=== PATIENT | female | born 1960 | race Caucasian/White ===

== ENCOUNTER 2022-02-28 08:33 | Outpatient (CLI) | payer BC, SELFPAY ==
--- NOTE | 2022-02-28 08:45 | CRLHL7_ITS ---
For Patients: As a result of the Cures Act, medical imaging exams and procedure reports are released immediately into your electronic medical record. You may view this report before your referring provider. If you have questions, please contact your health care provider. DIGITAL DIAGNOSTIC BILATERAL MAMMOGRAM USING TOMOSYNTHESIS AND COMPUTER-AIDED DETECTION BILATERAL BREAST ULTRASOUND CLINICAL HISTORY: BILATERAL breast lumps. COMPARISON: 06/15/2021, 06/07/2021, 03/27/2020, 08/11/2018, 05/20/2017 TECHNIQUE: Digital BILATERAL mammogram in four projections. Tomosynthesis and CAD utilized. Real-time ultrasound imaging of BILATERAL breast with imaging documentation. Scanning was performed by both the technologist and the radiologist. BREAST COMPOSITION: There are areas of scattered fibroglandular density. FINDINGS: CC/MLO 3D mammograms submitted bilaterally. No suspicious masses or architectural distortion bilaterally. No suspicious calcifications or adenopathy. Targeted sonogram to the RIGHT breast in the area of palpable concern performed at 9 o`clock 7 cm from the nipple. In this location there is a simple anechoic cyst measuring 8 x 2 x 6 millimeters. Normal fibroglandular tissue noted also at 10 o`clock 7 cm from the nipple. Targeted sonogram to the LEFT breast in the area of concern performed 6 o`clock 5 cm from the nipple. In this location there is a circumscribed nodule with hypoechoic internal echotexture measuring 4 x 4 x 4 millimeters. IMPRESSION: 1. Simple cyst and normal fibroglandular tissue RIGHT breast. 2. Indeterminate hypoechoic nodule LEFT breast 6 o`clock 5 cm from the nipple mid depth measuring 4 millimeters. RECOMMENDATIONS: Ultrasound-guided core needle biopsy of the LEFT breast nodule. Results and recommendations discussed with the patient. BI-RADS Category 4: Suspicious A lay language report of this examination will be provided to the patient. Dictated by Omid Kaplan MD @ 02/28/2022 10:17:50 AM jj/Dictated by: Omid Kaplan MD @ 02/28/2022 10:17:00 AM (Electronically Signed)
--- NOTE | 2022-02-28 09:15 | CRLHL7_ITS ---
For Patients: As a result of the Cures Act, medical imaging exams and procedure reports are released immediately into your electronic medical record. You may view this report before your referring provider. If you have questions, please contact your health care provider. PLEASE SEE DIGITAL DIAGNOSTIC BILATERAL MAMMOGRAM PERFORMED SAME DAY CRL:kostas kenyon/Dictated by: Omid Kaplan MD @ 02/28/2022 10:24:00 AM (Electronically Signed)
== END 2022-02-28 08:34 | disposition home or self-care (01) ==
LOC: MAMMO 08:34
PROVIDERS: PCP Family Medicine; Visit Provider Nurse Practitioner Family
DX: N63.10 Unspecified lump in the right breast, unspecified quadrant (principal); N63.20 Unspecified lump in the left breast, unspecified quadrant; N60.01 Solitary cyst of right breast
CPT/HCPCS: 76642; 77066; G0279

== ENCOUNTER 2022-03-05 09:04 | Outpatient (CLI) | payer BC, SELFPAY ==
--- NOTE | 2022-03-05 09:15 | CRLHL7_ITS ---
For Patients: As a result of the Century Cures Act, medical imaging exams and procedure reports are released immediately into your electronic medical record. You may view this report before your referring provider. If you have questions, please contact your health care provider. Examination / Procedure: Ultrasound guided biopsy of left breast mass. Indication: Hypoechoic 4 mm mass in the left breast at the 6 o`clock position 5 cm from the nipple. Comparison: : Ultrasound 02/28/2022 and mammograms 02/28/2022. Technique: The procedure and risks were discussed in detail, and written informed consent was obtained. A time out was performed to verify correct patient and procedure. The patient was placed supine on the table. Initial ultrasound of the left breast was performed. The small 4 mm mass in the posterior left breast at the 6 o`clock position 5 cm from the nipple was identified with ultrasound. A january was made on the patient`s skin. The site was prepped and draped in the usual sterile fashion. All elements of maximum sterile barrier technique were used. Soft tissues were anesthetized with 1% lidocaine. Under real time sonographic guidance a 14 gauge biopsy needle was used to perform 3 core biopsies. After each subsequent biopsy the small 4 mm mass was more and more difficult to visualize. To ensure accurate clip placement only 3 biopsies were performed. Biopsy clip was placed under ultrasound guidance. Please see post clip mammograms for details. Needle was removed. Bandage placed. Patient tolerated the procedure well. No immediate complications. Impression: Successful ultrasound guided biopsy of the left breast mass at the 6 o`clock position. Dictated by Greyson Bueno MD @ 03/05/2022 10:31:17 AM ----- ADDENDUM ----- Final pathology benign fibroadipose tissue is concordant with imaging findings. Recommend follow-up three-month ultrasound. Dictated by Greyson Bueno MD @ Mar 07 2022 10:19AM Signed by:?Greyson Bueno MD @03/05/2022 10:31:17 AM (Electronically Signed)
--- NOTE | 2022-03-05 09:45 | CRLHL7_ITS ---
For Patients: As a result of the Century Cures Act, medical imaging exams and procedure reports are released immediately into your electronic medical record. You may view this report before your referring provider. If you have questions, please contact your health care provider. Indication: Post clip mammogram. Technique: Left CC and mL mammograms. Comparison: Diagnostic mammogram 02/28/2022. Findings/impression : Biopsy clip is in expected position in left breast at approximately 6:00 position 5-6 cm from the nipple. Dictated by Greyson Bueno MD @ 03/05/2022 10:32:56 AM (Electronically Signed)
== END 2022-03-05 09:05 | disposition home or self-care (01) ==
LOC: US 09:05
PROVIDERS: PCP Family Medicine; Visit Provider Family Medicine
DX: N63.20 Unspecified lump in the left breast, unspecified quadrant (principal); R92.8 Other abnormal and inconclusive findings on diagnostic imaging of breast
CPT/HCPCS: 19083; 77065; 88305; A4648; A4649

== ENCOUNTER 2022-03-24 04:06 | Emergency (ER) | payer BC, SELFPAY ==
[2022-03-24] VITALS (18 sets, daily range): BP systolic 147–180; BP diastolic 69–118; PULSE 54–79; RESP 20; TEMP 36.8; O2SAT 94–99; BMI 27.3
--- NOTE | 2022-03-24 04:12 | ED_ITS ---
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 Carin went to bed normal at approximately 2300 hours. She awoke at 0215 with tingling of the hands and feet but more prominent in the ulnar distribution of the hands and the lateral aspects of the feet since she arrived. She denies difficulty with speaking swallowing or mentating. She has not had any recent trauma and denies headache neck pain or back pain. Patient notes no recent fever chills cough cold congestion. She denies any pain at this time. No loss of bowel or bladder control. She arrives at approximately 0415, 2 hours after noticing symptoms and 5 hours since last known well time. Patient notes that in 2010 she was hospitalized at [facility] in [place] with what they thought were stroke-like symptoms. However, the diagnosis ended up being migraine induced symptoms. Patient did not have headache at that time. Patient denies recent chest pain, rapid heart rate. She does note past history of occasional ?feeling funny? but no diagnosis of atrial fibrillation or atrial flutter. Related Data Home Medications Medication Instructions Recorded Confirmed aspirin 81 mg tablet,delayed 81 mg PO DAILY 02/20/22 03/24/22 release cetirizine 10 mg tablet 10 mg PO BID 02/20/22 03/24/22 cholecalciferol (vitamin D3) 25 2,000 unit PO DAILY 02/20/22 03/24/22 mcg (1,000 unit) tablet epinephrine 0.3 mg/0.3 mL 0.3 ml IM ONCE PRN 02/20/22 03/24/22 injection, auto-injector fluticasone propionate 50 1 spray intranasal DAILY 02/20/22 03/24/22 mcg/actuation nasal spray,suspension glipizide 10 mg tablet, extended 10 mg PO DAILY 02/20/22 03/24/22 release 24 hr multivitamin (Multiple Vitamins 1 tab PO QDAY 02/20/22 03/24/22 tablet) propranolol 80 mg capsule,24 80 mg PO DAILY 02/20/22 03/24/22 hr,extended release simvastatin 20 mg tablet 20 mg PO QPM 02/20/22 03/24/22 sitagliptin 100 mg tablet 100 mg PO DAILY 02/20/22 03/24/22 Allergies Allergy/AdvReac Type Severity Reaction Status Date / Time cephalexin Allergy Unknown Verified 02/20/22 13:00 dulaglutide Allergy Unknown Verified 02/20/22 13:00 exenatide Allergy Unknown Verified 02/20/22 13:00 metformin Allergy Unknown Verified 02/20/22 13:00 penicillin G Allergy Unknown Verified 02/20/22 13:00 phenol Allergy Unknown Verified 02/20/22 13:00 Erythromycin Allergy Unknown Uncoded 02/20/22 13:00 Sulfa Antibiotics Allergy Unknown Uncoded 02/20/22 13:00 Review of Systems Status of ROS: Reports: 10 or more systems reviewed and unremarkable except as noted in History and below Const: Denies: fever or chills Eyes: Denies: change in vision, blurry vision or blind spots ENMT: Denies: throat pain, neck pain or difficulty swallowing Cardio: Reports: palpitations (Occasional but no history of arrhythmia); Denies: chest pain or shortness of breath with exertion Resp: Denies: shortness of breath, cough or wheezing GI: Denies: abdominal pain, nausea, vomiting, diarrhea or difficulty swallowing : Denies: painful urination Musculo: Denies: back pain, neck pain or extremity pain Neuro: Reports: numbness in extremities; Denies: headache Allergy/Immuno: Denies: wheezing PFSH PFS Surgical History History of surgery on upper extremity Status post breast biopsy Status post carpal tunnel release Status post delivery Status post cholecystectomy Status post hysterectomy Social History Smoking Status: Never smoker Do you use any of these nicotine containing products: None Second hand tobacco smoke exposure: No How often do you have a drink containing alcohol: never How often do you have six or more drinks on one occasion: Never AUDIT-C Alcohol total score: 0 Non-prescribed substance use: denies use Exam Const: Vital Signs, click to edit/add: Vital Signs - 24 hr 03/24/22 04:23 03/24/22 05:53 03/24/22 04:54 Temperature 98.2 F 98.2 F Pulse Rate 66 Pulse Rate [Right Pulse Oximeter] 74 74 Respiratory Rate 20 20 Blood Pressure Blood Pressure [Ri ght Upper Arm] 180/118 H 180/118 H Pulse Oximetry 99 94 98 Oxygen Delivery Me thod Room Air Room Air 03/24/22 04:55 03/24/22 05:00 03/24/22 05:01 Temperature Pulse Rate 65 62 62 Pulse Rate [Right Pulse Oximeter] Respiratory Rate Blood Pressure 179/84 H 153/85 H Blood Pressure [Ri ght Upper Arm] Pulse Oximetry 97 97 96 Oxygen Delivery Me thod 03/24/22 05:15 03/24/22 05:17 03/24/22 05:30 Temperature Pulse Rate 58 L 64 64 Pulse Rate [Right Pulse Oximeter] Respiratory Rate Blood Pressure 153/82 H Blood Pressure [Ri ght Upper Arm] Pulse Oximetry 96 96 96 Oxygen Delivery Me thod 03/24/22 05:31 03/24/22 05:46 03/24/22 05:47 Temperature Pulse Rate 58 L 59 L 54 L Pulse Rate [Right Pulse Oximeter] Respiratory Rate Blood Pressure 158/86 H 157/71 H Blood Pressure [Ri ght Upper Arm] Pulse Oximetry 96 97 94 Oxygen Delivery Me thod 03/24/22 05:00 03/24/22 05:48 03/24/22 06:00 Temperature Pulse Rate 61 57 L Pulse Rate [Right Pulse Oximeter] Respiratory Rate Blood Pressure Blood Pressure [Ri ght Upper Arm] Pulse Oximetry 98 95 95 Oxygen Delivery Me thod 03/24/22 06:02 03/24/22 06:15 03/24/22 06:16 Temperature Pulse Rate 57 L 56 L 61 Pulse Rate [Right Pulse Oximeter] Respiratory Rate Blood Pressure 147/69 H 157/71 H Blood Pressure [Ri ght Upper Arm] Pulse Oximetry 95 96 94 Oxygen Delivery Me thod Documenting provider has reviewed patient's vital signs: yes Common normals: no apparent distress, average body habitus, oriented x3, no limitations, healthy appearing, alert and well nourished General appearance: cooperative, comfortable and well kempt HENMT: Common normals: normocephalic, head/scalp atraumatic, external ears normal and external nose normal Head and scalp: normocephalic and atraumatic Face and sinus: normal facial exam and face symmetric Nose: external nose normal External ear: external ears normal Mouth: oral and palatal mucosa normal Throat: posterior oropharynx normal Eye: Common normals: PERRL, EOMs intact bilaterally and conjunctivae normal General eye: normal appearance of both eyes Visual meneses: no peripheral vision loss and no visual field cut by quadrant Alignment: alignment normal Periorbital: periorbital findings normal Eyelid: eyelids normal Conjunctiva: conjunctiva(e) normal Sclera: sclerae normal Pupil: PERRL Neck & C-Spine: Common normals: full ROM, supple and no meningeal signs Resp: Common normals: normal respiratory effort and clear to auscultation bilaterally Effort & inspection: able to speak in complete sentences Auscultation: clear to auscultation bilaterally Cardio: Common normals: regular rate and regular rhythm Rate: regular rate Rhythm: regular rhythm GI: Common normals: soft to palpation and non-tender Palpation: soft : Common normals: CVA tenderness Bladder/kidney exam: CVA tenderness Back & Pelvis: Common normals: CVA tenderness Extremity: Common normals: normal to inspection, no clubbing, cyanosis or edema and no calf tenderness Neuro: Common normals: oriented x3, CN's II-XII intact bilaterally, moves all extremities, no focal motor deficits and no sensory deficits noted (Subjective decreased sensation in hands and feet.) Sensorium/orientation: alert Meningeal signs: no meningeal signs Coordination/balance: [id number] test normal (Of left hand. Right arm with IV in antecubital fossa) and Romberg test negative Speech: speech normal Motor exam: strength 5/5 throughout, no pronator drift, no tremor noted, no fasciculations and no movement abnormalities noted Coordination: [id number] test normal (Of left hand. Right arm with IV in antecubital fossa) Psych: Common normals: mental status grossly normal, thought process normal and speech normal Appearance: well kempt Activity/motor behavior: appropriate eye contact Speech: normal speech Thought process: normal thought process Thought content: normal thought content Attention/concentration: attention grossly intact Memory/cognition: memory grossly intact Insight: insight good Judgement: judgment good Course Course Hospital Course: At this time we immediately proceed to CT/CTA although bilateral symptoms would be unusual for an acute CVA. Other possibilities include intracranial bleed, mass, vitamin deficiency, neuritis. Reevaluation(s) Reevaluation #1: Patient continues to mentate normally. Moving all extremities. Consultations Consultation #1: [facility] Dr. Burrell consulted. At this time he does not feel that this event represents an acute stroke. Further CT CTA are negative at this time. He suggests further at home monitoring and follow-up with neurology for continuing symptoms. Vital Signs Vital signs: Initial Vital Signs Temperature 98.2 F 03/24/22 04:23 Temperature Source Temporal Artery Scan 03/24/22 04:23 Pulse Rate 74 03/24/22 04:23 Respiratory Rate 20 03/24/22 04:23 Blood Pressure 180/118 H 03/24/22 04:23 Blood Pressure Mean 138 03/24/22 04:23 Blood Pressure Position Sitting 03/24/22 04:23 Pulse Oximetry 99 03/24/22 04:23 Oxygen Delivery Method 03/24/22 04:23 Vital Signs Temperature 98.2 F 03/24/22 04:23 Pulse Rate 74 03/24/22 04:23 Respiratory Rate 20 03/24/22 04:23 Blood Pressure 180/118 H 03/24/22 04:23 Pulse Oximetry 99 03/24/22 04:23 Oxygen Delivery Method 03/24/22 04:23 Temperature 98.2 F 03/24/22 05:53 Pulse Rate 61 03/24/22 06:16 Respiratory Rate 20 03/24/22 05:53 Blood Pressure 157/71 H 03/24/22 06:16 Pulse Oximetry 94 03/24/22 06:16 Oxygen Delivery Method 03/24/22 05:53 MDM - Altered Mental Status MDM Narrative Medical decision making narrative: 1. Numbness or tingling of the hands and feet-patient noted to remain stable in the emergency room with no worsening of symptoms. She continued to mentate normally. CT of head and CTA of head and neck are all reassuring with no ev idence of masses, intracranial bleed, blockages. I had the pleasure of speaking with [facility]. They do suggest follow-up with primary MD. given patient's history of gluten sensitive enteropathy she will follow-up with her primary MD for recheck of vitamin-D, B vitamins and magnesium. We talked briefly about dosage amounts for magnesium and the B vitamins. Patient has a reassuring white count and CRP. Creatinine potassium within normal limits. Troponin is negative. Urinalysis without evidence of UTI. Patient will return to the emergency room for worsening symptoms. 2. Disposition-patient is discharged home. Patient does agree she feels safe going home as does her taking her home. However, if she notices onset of new symptoms or worsening symptoms I would like him to return to the emergency room for further evaluation. Medical Records Attestation: I reviewed the patient's medical records. Lab Data Attestation: I reviewed the patient's lab results. Labs: Lab Results 03/24/22 03/24/22 03/24/22 Range/Units 04:40 04:40 04:40 WBC 8.10 (4.50-11.00) K/uL RBC 4.66 (4.00-5.20) m/uL Hgb 13.2 (12.0-16.0) gm/dL Hct 41.2 (33.0-51.0) % MCV 88 (80-100) fL MCH 28 (26-34) pg MCHC 32 (32-36) gm/dL RDW Coeff of Doming[place] 13.7 (11.5-15.5) % Plt Count 261 (140-440) K/uL Neut % (Auto) 57.6 (42.0-72.0) % Lymph % (Auto) 31.6 (20-44) % [place] % (Auto) 7.5 (0.0-11.0) % Eos % (Auto) 2.6 (0.0-7.0) % Baso % (Auto) 0.2 (0.0-3.0) % Neut # (Auto) 4.66 (1.7-7.0) K/uL Lymph # (Auto) 2.56 (0.90-2.90) K/uL [place] # (Auto) 0.60 (0.00-0.90) K/UL Eos # (Auto) 0.21 (0.00-0.50) K/uL Baso # (Auto) 0.02 (0.00-0.30) K/uL Abs Immat Gran (auto) 0.04 (0.00-0.30) K/uL ESR 6 (2-20) mm/hr Sodium (135-149) mmol/L Potassium (3.6-5.1) mmol/L Chloride (96-114) mmol/L Carbon Dioxide (20-32) mmol/L BUN (7-30) mg/dL Creatinine (0.5-1.5) mg/dL Estimated Creat Clear Estimated GFR ml/min Glucose (60-115) mg/dL Calcium (8.4-10.6) mg/dL Total Bilirubin (0.1-1.5) mg/dL AST (12-35) U/L ALT (4-35) U/L Alkaline Phosphatase (40-150) U/L Total Creatine Kinase (41-117) U/L Troponin I (0.01-0.04) ng/mL C-Reactive Protein (0.5-1.0) mg/dL Total Protein (6.0-8.3) g/dL Albumin (3.3-5.0) g/dL Urine Color Yellow (Yellow) Urine Appearance Clear (Clear) Urine pH 7.0 (5.0-8.5) Ur Specific [place] 1.020 (1.000-1.030) Urine Protein Negative (Negative) Urine Glucose (UA) Negative (Negative) Urine Ketones Negative (Negative) Urine Blood Negative (Negative) Urine Nitrite Negative (Negative) Urine Bilirubin Negative (Negative) Urine Urobilinogen 0.2 (0.2-1.0) Ur Leukocyte Esterase Negative (Negative) Urine RBC 0-2 (0-2) Urine WBC 0-2 (0-5) Ur Squamous Epith Cells Few (None-Few) Urine Bacteria None (None) 03/24/22 Range/Units 04:40 WBC (4.50-11.00) K/uL RBC (4.00-5.20) m/uL Hgb (12.0-16.0) gm/dL Hct (33.0-51.0) % MCV (80-100) fL MCH (26-34) pg MCHC (32-36) gm/dL RDW Coeff of Dominga (11.5-15.5) % Plt Count (140-440) K/uL Neut % (Auto) (42.0-72.0) % Lymph % (Auto) (20-44) % [place] % (Auto) (0.0-11.0) % Eos % (Auto) (0.0-7.0) % Baso % (Auto) (0.0-3.0) % Neut # (Auto) (1.7-7.0) K/uL Lymph # (Auto) (0.90-2.90) K/uL [place] # (Auto) (0.00-0.90) K/UL Eos # (Auto) (0.00-0.50) K/uL Baso # (Auto) (0.00-0.30) K/uL Abs Immat Gran (auto) (0.00-0.30) K/uL ESR (2-20) mm/hr Sodium 139 (135-149) mmol/L Potassium 3.8 (3.6-5.1) mmol/L Chloride 104 (96-114) mmol/L Carbon Dioxide 27 (20-32) mmol/L BUN 16 (7-30) mg/dL Creatinine 0.8 (0.5-1.5) mg/dL Estimated Creat Clear 56.00 Estimated GFR 83 ml/min Glucose 174 H (60-115) mg/dL Calcium 8.6 (8.4-10.6) mg/dL Total Bilirubin 0.3 (0.1-1.5) mg/dL AST 22 (12-35) U/L ALT 23 (4-35) U/L Alkaline Phosphatase 92 (40-150) U/L Total Creatine Kinase 56 (41-117) U/L Troponin I < 0.01 L (0.01-0.04) ng/mL C-Reactive Protein < 0.5 L (0.5-1.0) mg/dL Total Protein 7.3 (6.0-8.3) g/dL Albumin 4.3 (3.3-5.0) g/dL Urine Color (Yellow) Urine Appearance (Clear) Urine pH (5.0-8.5) Ur Specific [place] (1.000-1.030) Urine Protein (Negative) Urine Glucose (UA) (Negative) Urine Ketones (Negative) Urine Blood (Negative) Urine Nitrite (Negative) Urine Bilirubin (Negative) Urine Urobilinogen (0.2-1.0) Ur Leukocyte Esterase (Negative) Urine RBC (0-2) Urine WBC (0-5) Ur Squamous Epith Cells (None-Few) Urine Bacteria (None) Imaging Data CT scan - head: Attestation: I have reviewed the pertinent imaging results. My impression: No acute findings Radiologist's impression: No acute findings CTA head and neck: Attestation: I have reviewed the pertinent imaging results. My impression: No acute findings Radiologist's impression: No acute findings ECG Data Attestation: I personally reviewed and interpreted this ECG as follows: ECG interpretation date: 03/24/22 Interpretation: EKG by my read shows sinus bradycardia at a rate of 55. There do not appear to be any acute ST or T-wave changes. First degree block noted with a [place] interval of 22.2. QT interval corrected is 384 Discharge Plan Discharge Clinical Impression: Numbness and tingling in both hands, Numbness and tingling of both feet Patient Disposition: Home, Self-Care Condition: Unchanged Additional Instructions: Recommend follow-up with Dr. Boyce. He may wish to check your vitamin-D, vitamin B levels, magnesium. Return to the emergency room for worsening symptoms. Prescriptions: No Action simvastatin 20 mg tablet 20 mg PO QPM aspirin 81 mg tablet,delayed release (DR/EC) 81 mg PO DAILY epinephrine 0.3 mg/0.3 mL auto-injector 0.3 ml IM ONCE PRN cetirizine 10 mg tablet 10 mg PO BID cholecalciferol (vitamin D3) 25 mcg (1,000 unit) tablet 2,000 unit PO DAILY propranolol 80 mg capsule,extended release 24 hr 80 mg PO DAILY glipizide 10 mg tablet extended release 24hr 10 mg PO DAILY sitagliptin 100 mg tablet 100 mg PO DAILY multivitamin [Multiple Vitamins] Tablet 1 tab PO QDAY fluticasone propionate 50 mcg/actuation spray,suspension 1 spray intranasal DAILY Follow Up/Referrals: Drake Boyce MD [Primary Care Provider] - Stand Alone Forms: [facility], [place] Info Instructions
--- NOTE | 2022-03-24 04:40 | CRLHL7_ITS ---
For Patients: As a result of the Century Cures Act, medical imaging exams and procedure reports are released immediately into your electronic medical record. You may view this report before your referring provider. If you have questions, please contact your health care provider. INDICATION: Altered sensation in the extremities. COMPARISON: None available. TECHNIQUE: CT examination of the head was performed with 3 mm thick axial and 2 mm thick coronal and sagittal sections without intravenous contrast. Images were obtained from the vertex of the skull through the skull base, and I examined the images with the brain and bone windows. Please note that all CT scans at this facility use dose modulation, iterative reconstruction, and/or weight-based dosing when appropriate to reduce radiation dose to as low as reasonably achievable. FINDINGS: : The brain is normal in appearance for the patient`s age on today`s study, with no sign of mass lesion, mass effect, hemorrhage, or edema. The ventricles and sulci are normal in appearance for the patient`s age. The visualized portions of the orbits are normal in appearance. The visualized portions of the paranasal sinuses and mastoids are clear. The osseous structures are normal in their appearance with no sign of abnormality in the skull base or calvarium. IMPRESSION: Normal noncontrast CT of the head for the patient`s age. Please note that all CT scans at this facility use dose modulation, iterative reconstruction, and/or weight-based dosing when appropriate to reduce radiation dose to as low as reasonably achievable. Dictated by Shamar Urias MD @ 03/24/2022 5:01:01 AM (Electronically Signed)
--- NOTE | 2022-03-24 04:40 | CT_ITS ---
Patient: BARBARA SMITH Facility:?[facility] Patient ID:?[id number] Site Patient ID:?[id number]. Site :?[id number] Study:?CT-Neck Angio Angio -03/24/2022 4:56:56 AM Ordering Physician:Rush Vincent Final Report: DATE: 03/24/2022 CLINICAL HISTORY: Patient with sensory changes. TECHNIQUE: Standard helical CT image acquisition of the neck up to the skull base after bolus intravenous contrast enhancement. Multiplanar reconstructed images performed on a separate workstation. COMPARISON: CT same day. FINDINGS: The origins of the great vessels from the aortic arch are patent. The origin of the right vertebral artery is patent. The origin of the left vertebral artery is patent. The common carotid arteries are patent. There is no stenosis at the origin of the right internal carotid artery. There is no stenosis at the origin of the left internal carotid artery. There is mild fibromuscular dysplasia in the mid and distal cervical segments of the internal carotid arteries bilaterally. The left vertebral artery is dominant. The cervical segments of the vertebral arteries are patent up to the skull base. The visualized lung apices are unremarkable. The thyroid gland is unremarkable. The soft tissues of the neck are unremarkable. There are degenerative changes in the cervical spine. IMPRESSION: 1. Patent cervical vasculature. 2. Mild fibromuscular dysplasia in the mid and distal cervical segments of the internal carotid arteries bilaterally. Please note that all CT scans at this facility use dose modulation, iterative reconstruction, and/or weight-based dosing when appropriate to reduce radiation dose to as low as reasonably achievable. Dictated by Jolie Smith MD @ 03/24/2022 7:08:11 AM Signed by:?Jolei Smith MD @03/24/2022 7:08:11 AM (Electronic Signature)
--- NOTE | 2022-03-24 04:40 | CT_ITS ---
Patient: BARBARA SMITH Facility:?[facility] Patient ID:?[id number] Site Patient ID:?[id number]. Site :?[id number] Study:?CT-Head Angio -03/24/2022 4:57:05 AM Ordering Physician:Rush Vincent Final Report: DATE: 03/24/2022 CLINICAL HISTORY: Patient with sensory changes. TECHNIQUE: Standard helical CT image acquisition through the intracranial circulation following intravenous administration of contrast material with bolus tracking. Multiplanar reconstructed images were performed and interpreted. COMPARISON: CT same day. FINDINGS: There is no cerebral aneurysm or large vessel occlusion. The right internal carotid artery is normal. The right middle cerebral artery and its branches are normal. The right anterior cerebral artery and its branches are normal. The left internal carotid artery is normal. The left middle cerebral artery and its branches are normal. The left anterior cerebral artery and its branches are normal. The anterior communicating artery is well visualized and appears normal. The right vertebral artery and PICA are normal. The left vertebral artery and PICA are normal. The left vertebral artery is dominant. The basilar artery is patent and appears normal. The right posterior cerebral artery is normal. The left posterior cerebral artery is normal. The visualized venous structures are patent. IMPRESSION: Normal CT angiogram of the head. Please note that all CT scans at this facility use dose modulation, iterative reconstruction, and/or weight-based dosing when appropriate to reduce radiation dose to as low as reasonably achievable. Dictated by Jolie Smith MD @ 03/24/2022 7:10:00 AM Signed by:?Jolie Smith MD @03/24/2022 7:10:00 AM (Electronic Signature)
[2022-03-24 05:00] LABS: Basophils Absolute Auto 0.02 K/uL (0.00-0.30); Basophils Percent Auto 0.2 % (0.0-3.0); Eosinophils Absolute Auto 0.21 K/uL (0.00-0.50); Eosinophils Percent Auto 2.6 % (0.0-7.0); Hematocrit 41.2 % (33.0-51.0); Hemoglobin* 13.2 gm/dL (12.0-16.0); Immature Granulocytes Abs Auto 0.04 K/uL (0.00-0.30); Lymphocytes Absolute Auto 2.56 K/uL (0.90-2.90); Lymphocytes Percent Auto 31.6 % (20-44); Mean Corpuscular HGB Conc 32 gm/dL (32-36); Mean Corpuscular Hemoglobin 28 pg (26-34); Mean Corpuscular Volume 88 fL (80-100); Monocytes Percent Auto 7.5 % (0.0-11.0); Neutrophils Absolute Auto 4.66 K/uL (1.7-7.0); Neutrophils Percent Auto 57.6 % (42.0-72.0); Platelet Count* 261 K/uL (140-440); RDW Coefficient of Variation % 13.7 % (11.5-15.5); Red Blood Count 4.66 m/uL (4.00-5.20); Slide Review Reflex No
[2022-03-24 05:19] LABS: Chloride* 104 mmol/L (96-114)
[2022-03-24 05:20] LABS: Albumin* 4.3 g/dL (3.3-5.0); Potassium* 3.8 mmol/L (3.6-5.1); Sodium* 139 mmol/L (135-149)
[2022-03-24 05:22] LABS: Carbon Dioxide* 27 mmol/L (20-32); Creatinine* 0.8 mg/dL (0.5-1.5); Estimated Glomerular Filt Rate 83 ml/min
[2022-03-24 05:23] LABS: Alanine Aminotransferase* 23 U/L (4-35); Alkaline Phosphatase* 92 U/L (40-150); Aspartate Amino Transferase* 22 U/L (12-35); Bilirubin Total* 0.3 mg/dL (0.1-1.5); Blood Urea Nitrogen* 16 mg/dL (7-30); Calcium* 8.6 mg/dL (8.4-10.6); Creatine Kinase* 56 U/L (41-117); Glucose* 174 mg/dL (60-115); Total Protein* 7.3 g/dL (6.0-8.3)
[2022-03-24 05:26] LABS: C Reactive Protein* < 0.5 mg/dL (0.5-1.0)
[2022-03-24 05:44] LABS: Appearance Urine Clear (Clear); Bilirubin Urine Negative (Negative); Blood Urine Negative (Negative); Color Urine Yellow (Yellow); Glucose Urine Negative (Negative); Ketones Urine Negative (Negative); Leukocyte Esterase Urine Negative (Negative); Nitrite Urine Negative (Negative); Protein Urine Negative (Negative); Urobilinogen Urine 0.2 (0.2-1.0)
[2022-03-24 05:53] LABS: RBC Urine 0-2 (0-2); Squamous Epithelial Cell Urine Few (None-Few); WBC Urine 0-2 (0-5)
[2022-03-24 06:06] LABS: Troponin I* < 0.01 ng/mL (0.01-0.04)
[2022-03-24 06:19] LABS: Erythrocyte SedimentationRate* 6 mm/hr (2-20)
== END 2022-03-24 06:50 | disposition home or self-care (01) ==
PROVIDERS: Emergency Provider Family Medicine; PCP Family Medicine
DX: R20.2 Paresthesia of skin (principal)
CPT/HCPCS: 36415; 70450; 70496; 70498; 80053; 81001; 82550; 84484; 85025; 85651; 86140; 93005; 94761; 99284; 99285; Q9967

== ENCOUNTER 2022-06-12 10:43 | Outpatient (CLI) | payer BC, SELFPAY ==
--- NOTE | 2022-06-12 11:15 | CRLHL7_ITS ---
For Patients: As a result of the Century Cures Act, medical imaging exams and procedure reports are released immediately into your electronic medical record. You may view this report before your referring provider. If you have questions, please contact your health care provider. LEFT BREAST ULTRASOUND, 06/12/2022 CLINICAL HISTORY: 4-month f/u to negative LEFT breast biopsy. COMPARISON: 05/05/2022, 02/28/2022. TECHNIQUE: Real-time ultrasound imaging of LEFT breast with imaging documentation. FINDINGS: Small residual focus of decreased echogenicity LEFT breast 6 o`clock 5 cm from the nipple with associated clip measuring 3 x 3 x 3 millimeters. No findings concerning for malignancy. IMPRESSION: Decreased size of the previously biopsied hypoechoic structure LEFT breast 6 o`clock 5 cm from the nipple. No evidence of malignancy. RECOMMENDATIONS: Routine screening mammography in February 2023. Results and recommendations were discussed with the patient at the time of the exam. BI-RADS Category 2: Benign A lay language report of this examination will be provided to the patient. Dictated by Omid Kaplan MD @ 06/12/2022 12:17:35 PM kostas/Dictated by: Omid Kaplan MD @ 06/12/2022 12:17:00 PM (Electronically Signed)
== END 2022-06-12 10:44 | disposition home or self-care (01) ==
LOC: US 10:44
PROVIDERS: PCP Family Medicine; Visit Provider Family Medicine
DX: N63.20 Unspecified lump in the left breast, unspecified quadrant (principal); N64.59 Other signs and symptoms in breast
CPT/HCPCS: 76642

== ENCOUNTER 2023-04-23 15:46 | Outpatient (CLI) | payer BC, SELFPAY | END 2023-04-23 15:47 | disposition home or self-care (01) | PROVIDERS: PCP Family Medicine; Visit Provider Internal Medicine | DX: Z13.6 Encounter for screening for cardiovascular disorders (principal); Z13.9 Encounter for screening, unspecified | CPT/HCPCS: 80053; 80061 ==

== ENCOUNTER 2023-07-30 15:16 | Outpatient (CLI) | payer BC, SELFPAY | END 2023-07-30 15:17 | disposition home or self-care (01) | LOC: NFLDREF 15:20 | PROVIDERS: PCP Internal Medicine; Visit Provider Internal Medicine | DX: R60.9 Edema, unspecified (principal) | CPT/HCPCS: 83520 ==

== ENCOUNTER 2023-09-15 15:39 | Outpatient (CLI) | payer BC, SELFPAY | END 2023-09-15 15:40 | disposition home or self-care (01) | LOC: NFLDREF 15:43 | PROVIDERS: PCP Internal Medicine; Visit Provider Internal Medicine | DX: R10.9 Unspecified abdominal pain (principal); E13.9 Other specified diabetes mellitus without complications | CPT/HCPCS: 80053; 82043; 82570 ==

== ENCOUNTER 2023-09-17 15:45 | Outpatient (CLI) | payer BC, SELFPAY ==
--- NOTE | 2023-09-17 16:00 | CT_ITS ---
Patient: BARBARA SMITH Facility:?[facility] Patient ID:?[id number] Site Patient ID:?[id number]. Site :?[id number] Study:?CT-Abdomen/Pelvis W ISOVUE 370-09/17/2023 4:22:48 PM Ordering Physician:KIMBERLY Final Report: INDICATION: Abdominal pain TECHNIQUE: Axial images were obtained from the diaphragm to the pubic symphysis. Reformats were obtained in the coronal and sagittal plane. IV Contrast: 97 cc Isovue 370 Oral Contrast: None COMPARISON: None. FINDINGS: Lower chest: Unremarkable. Liver: Mildly decreased density of the liver without focal intrahepatic lesion. Gallbladder and bile ducts: Status post cholecystectomy. Spleen: Unremarkable. Normal in size without mass. Pancreas: Unremarkable. No mass or inflammation. Adrenal glands: Unremarkable. No nodules. Kidneys: Symmetric renal enhancement without hydronephrosis. Subcentimeter hypodense lesion within the right kidney which is too small for characterization although likely represents a renal cyst. Vasculature: Atherosclerosis without abdominal aortic aneurysm. GI tract: The stomach is unremarkable. No dilated loops of large or small intestine. Appendix unremarkable. Pelvis: Status post hysterectomy. Likely area of calcified fat necrosis within the left posterior pelvis. Small fat containing bilateral indirect inguinal hernias. Bones: Unremarkable for age. IMPRESSION: 1. No dilated bowel or localized inflammation. 2. Mild hepatic steatosis. 3. Small fat containing bilateral indirect inguinal hernias. Please note that all CT scans at this facility use dose modulation, iterative reconstruction, and/or weight-based dosing when appropriate to reduce radiation dose to as low as reasonably achievable. Dictated by Greyson Kumari MD @ 09/18/2023 7:45:13 AM Signed by:?Greyson Kumari MD @09/18/2023 7:45:13 AM (Electronic Signature)
== END 2023-09-17 15:46 | disposition home or self-care (01) ==
LOC: CT 15:45
PROVIDERS: PCP Internal Medicine; Visit Provider Internal Medicine
DX: R10.9 Unspecified abdominal pain (principal); K76.0 Fatty (change of) liver, not elsewhere classified; K40.20 Bilateral inguinal hernia, without obstruction or gangrene, not specified as recurrent
CPT/HCPCS: 74177; Q9967

== ENCOUNTER 2023-10-06 11:45 | Outpatient (CLI) | payer BC, SELFPAY | END 2023-10-06 11:46 | disposition home or self-care (01) | LOC: NFLDREF 10-08 07:29 | PROVIDERS: PCP Internal Medicine; Referring Provider Internal Medicine; Visit Provider Internal Medicine | DX: R10.9 Unspecified abdominal pain (principal) | CPT/HCPCS: 87338 ==

== ENCOUNTER 2023-12-14 00:17 | Emergency (ER) | payer BC, SELFPAY ==
[2023-12-14 00:29] VITALS: BP 165/76; PULSE 58; RESP 16; TEMP 37; O2SAT 94
[2023-12-14] MEDS: DOXYCYCLINE HYCLATE 100 MG PO (01:17)
[2023-12-14 01:20] VITALS: BP 145/74; PULSE 65; RESP 16; TEMP 37; O2SAT 94
--- NOTE | 2023-12-14 05:37 | ED_ITS ---
HPI - General Adult General Chief complaint: Extremity Pain/Injury, Lower Stated complaint: L Leg flaring up. Time Seen by Provider: 12/14/23 03:33 Source: patient Mode of arrival: ambulatory Limitations: no limitations History of Present Illness HPI narrative: 63-year-old female with a history of qnr-tmpqfsi-nqeuaskki type 2 diabetes presents the emergency department with concern that she could be developing an early cellulitis of the left lower extremity. She reports that she scraped the left lower leg on a car door 6 days ago. Looked at it last a couple of days ago and it appeared to be stable but today she says that it started to get more red. The previous scratched dots now becoming more confluent Edyta red. She has been a applying antibiotic ointment the 1st day and tea tree oil the last couple of days and feels like it is getting worse. She is not having any itching, no drainage, there is not a lot of surrounding redness from the wound and she is not having any systemic symptoms like chills, fever or aches. No new trauma or injury since the original scratch 6 days ago. Multiple antibiotic allergies, reviewed. Many are sensitivities. She also has hypertension, hyperlipidemia and is gluten sensitive. Medications are accurate as listed. Please note that this was created in down time and is cut and pasted back after discharge. ROS is notable for the skin issues only, otherwise denies times 12 systems today. Related Data Home Medications ?Medication ?Instructions ?Recorded ?Confirmed aspirin 81 mg tablet,delayed 81 mg PO DAILY 02/20/22 12/14/23 release cetirizine 10 mg tablet 10 mg PO BID 02/20/22 12/14/23 cholecalciferol (vitamin D3) 25 2,000 unit PO DAILY 02/20/22 12/14/23 mcg (1,000 unit) tablet prednisone 20 mg tablet 20 mg PO BID PRN 11/27/23 12/14/23 multivitamin 1 tab PO QAM 12/08/23 12/14/23 vitamin B complex 1 tab PO QDAY 12/08/23 12/14/23 Previous Rx's ?Medication ?Instructions ?Recorded epinephrine 0.3 mg/0.3 mL 0.3 ml IM ONCE PRN 01/09/23 injection, auto-injector hypersensitivity reaction #2 ea glipizide 10 mg tablet, extended 20 mg (2 x 10 mg) PO DAILY #180 09/15/23 release 24 hr tabs pioglitazone 15 mg tablet 15 mg PO QDAY #90 tabs 09/15/23 propranolol 80 mg capsule,24 80 mg PO DAILY #90 caps 09/15/23 hr,extended release simvastatin 20 mg tablet 20 mg PO QHS #90 tabs 09/15/23 sitagliptin phosphate 100 mg 100 mg PO DAILY #90 tabs 09/15/23 tablet (Januvia) Allergies Allergy/AdvReac Type Severity Reaction Status Date / Time cephalexin Allergy Unknown Verified 12/14/23 00:32 dulaglutide Allergy Unknown Verified 12/14/23 00:32 exenatide Allergy Unknown Verified 12/14/23 00:32 metformin Allergy Unknown Verified 12/14/23 00:32 penicillin G Allergy Unknown Verified 12/14/23 00:32 phenol Allergy Unknown Verified 12/14/23 00:32 Erythromycin Allergy Unknown Uncoded 12/08/23 16:33 Sulfa Antibiotics Allergy Unknown Uncoded 12/08/23 16:33 [facility] Medical History Constipation ?K59.00 - Constipation, unspecified (ICD-10) History of anaphylaxis ?Z87.892 - Personal history of anaphylaxis (ICD-10) Surgical History Status post hysterectomy ?Z90.710 - Acquired absence of both cervix and uterus (ICD-10) Status post cholecystectomy ?Z90.49 - Acquired absence of other specified parts of digestive tract (ICD- 10) Status post delivery ?Z98.891 - History of uterine scar from previous surgery (ICD-10) Status post carpal tunnel release ?Z98.890 - Other specified postprocedural states (ICD-10) Status post breast biopsy ?Z98.890 - Other specified postprocedural states (ICD-10) History of surgery on upper extremity ?Z98.890 - Other specified postprocedural states (ICD-10) Social History Smoking Status: Never smoker Do you use any of these nicotine containing products: None Second hand tobacco smoke exposure: No How often do you have a drink containing alcohol: never How often do you have six or more drinks on one occasion: Never AUDIT-C Alcohol total score: 0 Non-prescribed substance use: denies use Little interest or pleasure in doing things: not at all Feeling down, depressed, or hopeless: not at all service: No Exam Const: Vital Signs, click to edit/add: Vital Signs - 24 hr 12/14/23 00:29 12/14/23 01:20 12/14/23 01:20 Temperature 98.6 F 98.6 F 98.6 F Pulse Rate [Pulse Oximeter] 58 L 65 65 Respiratory Rate 16 16 16 Blood Pressure [Ri ght Upper Arm] 165/76 H 145/74 H 145/74 H Pulse Oximetry 94 94 Oxygen Delivery Me thod Room Air Room Air Documenting provider has reviewed patient's vital signs: yes Common normals: no apparent distress and alert General appearance: cooperative and well kempt Eye: General eye: normal appearance of both eyes Resp: Common normals: normal respiratory effort Effort & inspection: able to speak in complete sentences Extremity: Other: Left knee and ankle without signs of effusion, normal range of motion. The left ventral lower lateral leg has a 2 cm x 1 cm superficial scratch with some very mild surrounding redness. It appears confined more so to the surface of the skin and not the deeper soft tissue areas. There is no fluctuance, no significant tenderness. There is a perfectly sq area of mildly irritation also around this which is consistent with the bandage that she presents with covering the wound today. Neuro: Sensorium/orientation: alert Motor exam: no movement abnormalities noted Psych: Appearance: well kempt Attitude: engaged Activity/motor behavior: appropriate eye contact Insight: insight good Judgement: judgment good Skin: Common normals: no rashes or lesions noted General skin exam: no rashes or lesions noted Course Course ED Course: Mild irritation around the wound, worsening worrisome for early cellulitis. I think this is more likely to be a localized skin irritation from the tea tree oil and antibiotic ointment and bandage rather than infection but I cannot be sure. With her diabetes and prior very bad cellulitis of the opposite leg, a sink that there is too much to risk by not starting an antibiotic. Patient is instructed to wash the area gently when she gets home with a soap that she tolerates is I do fear that she will react to our Hibiclens. I would like for her to apply plain Vaseline only or even potentially a little bit of hydrocortisone ointment but no other topical treatments. Avoid the type of dressing that she presents with today as I do think she is having some additional irritation from at also. She is given a dose of doxycycline here in the ED and will continue on this twice daily for a week from InStent meds. May worsen for up to 36 hours, counseled on this. Follow up in 48 hours in the clinic if things are not starting to improve. She verbalizes understanding and agreement. Alarm symptoms reviewed that would warrant ED presentation. Vital Signs Vital signs: Initial Vital Signs Temperature 98.6 F 12/14/23 00:29 Temperature Source Temporal Artery Scan 12/14/23 00:29 Pulse Rate 58 L 12/14/23 00:29 Pulse Rhythm Regular 12/14/23 00:29 Pulse Strength 3+ Normal 12/14/23 00:29 Respiratory Rate 16 12/14/23 00:29 Blood Pressure 165/76 H 12/14/23 00:29 Blood Pressure Mean 105 12/14/23 00:29 Blood Pressure Position Sitting 12/14/23 00:29 Pulse Oximetry 94 12/14/23 00:29 Oxygen Delivery Method Room Air 12/14/23 00:29 Vital Signs Temperature 98.6 F 12/14/23 00:29 Pulse Rate 58 L 12/14/23 00:29 Respiratory Rate 16 12/14/23 00:29 Blood Pressure 165/76 H 12/14/23 00:29 Pulse Oximetry 94 12/14/23 00:29 Oxygen Delivery Method Room Air 12/14/23 00:29 Temperature 98.6 F 12/14/23 01:20 Pulse Rate 65 12/14/23 01:20 Respiratory Rate 16 12/14/23 01:20 Blood Pressure 145/74 H 12/14/23 01:20 Pulse Oximetry 94 12/14/23 01:20 Oxygen Delivery Method Room Air 12/14/23 01:20 Medications Administered Medications: Discontinued Medications Generic Name Dose Route Start Last Admin Trade Name Freq PRN Reason Stop Dose Admin Doxycycline Hyclate 100 mg 12/14/23 05:38 12/14/23 01:17 Doxycycline Hyclate 100 Mg PO 12/14/23 05:39 100 mg ONCE ONE Administration Discharge Plan Discharge Clinical Impression: Cellulitis Patient Disposition: Home w/ Parent or Adult Condition: Stable Instructions: Cellulitis (ED) Additional Instructions: Discharge instructions for Carin Souza 12/14/23: I do see some localized inflammation on your left lower leg.? This could be from an early infection or from a reaction to topical products, stasis, or multiple other causes.? Because of your diabetes, I do recommend that we start an antibiotic.? You have multiple allergies and therefore the best option would be doxycycline.? We have given your 1st dose here in the emergency department, you will need to picker and sorter load and unload additional doses from the vending machine in the lobby or if you prefer, we can send to your local pharmacy. You do seem to have some localized irritation from the products you have been us ing today.? I would prefer that you when you get home, you wash with the soap that we know that your skin tolerates and remove any traces of the tea tree oil, antibiotic ointment and adhesive.? It is okay to apply a small amount of steroid ointment tonight or what I would prefer is just plain Vaseline. Things may worsen for up to 36 hours, do not be alarmed unless the worsening is severe.? If you start to run high fevers, have chills or significant drainage, you should be re-evaluated sooner.? If things are not starting to improve by Friday, please make a follow-up within 24 hours in the clinic for re- evaluation. Activity Level: No Restrictions Discharge Diet: Regular Prescriptions: No Action aspirin 81 mg tablet,delayed release (DR/EC) 81 mg PO DAILY cetirizine 10 mg tablet 10 mg PO BID cholecalciferol (vitamin D3) 25 mcg (1,000 unit) tablet 2,000 unit PO DAILY vitamin B complex Tablet 1 tab PO QDAY multivitamin Tablet 1 tab PO QAM glipizide 10 mg tablet extended release 24hr 20 mg PO DAILY Qty: 180 1RF pioglitazone 15 mg tablet 15 mg PO QDAY Qty: 90 3RF propranolol 80 mg capsule,extended release 24hr 80 mg PO DAILY Qty: 90 3RF simvastatin 20 mg tablet 20 mg PO QHS Qty: 90 3RF Januvia 100 mg tablet 100 mg PO DAILY Qty: 90 3RF prednisone 20 mg tablet 20 mg PO BID PRN epinephrine 0.3 mg/0.3 mL auto-injector 0.3 ml IM ONCE PRN (Reason: hypersensitivity reaction) Qty: 2 2RF Follow Up/Referrals: Jean-Claude March MD [Primary Care Provider] - Stand Alone Forms: [employer] Info Instructions
== END 2023-12-14 05:39 | disposition home or self-care (01) ==
PROVIDERS: Emergency Provider Family Medicine; PCP Internal Medicine
DX: L03.116 Cellulitis of left lower limb (principal); W26.8XXA Contact with other sharp object(s), not elsewhere classified, initial encounter
CPT/HCPCS: 99283; A9270

== ENCOUNTER 2024-02-08 20:52 | Emergency (ER) | payer BC, SELFPAY ==
[2024-02-08 21:49] VITALS: BP 160/85; PULSE 86; RESP 16; TEMP 37.9; O2SAT 91; BMI 30.4
--- NOTE | 2024-02-08 21:57 | CRLHL7_ITS ---
For Patients: As a result of the Cures Act, medical imaging exams and procedure reports are released immediately into your electronic medical record. You may view this report before your referring provider. If you have questions, please contact your health care provider. INDICATION: Chest pain. TECHNIQUE: Chest 2 views. COMPARISON: None. FINDINGS: Cardiovascular and mediastinum: Cardiomediastinal silhouette is within normal limits Lungs and pleural spaces: Left lower lung zone linear opacities likely atelectasis. Otherwise, lungs are clear. No sign of pleural effusion. No pneumothorax. Bones and soft tissues: No significant findings. IMPRESSION: No acute or significant findings. Dictated by Patric Plunkett MD @ 02/08/2024 10:32:28 PM (Electronically Signed)
[2024-02-08 23:05] LABS: PCR FLU A Negative PCR FLU A (Negative); PCR FLU B Negative PCR FLU B (Negative); PCR RSV Negative PCR RSV (Negative); SARS PCR* POSITIVE SARS-CoV-2 (Negative)
[2024-02-08 23:17] VITALS: RESP 16; TEMP 36.5; O2SAT 93
--- NOTE | 2024-02-08 23:54 | ED_ITS ---
HPI - Fever General Date Seen: 02/08/24 Chief Complaint: Fever Stated Complaint: fever, body aches, feels terrible Time Seen by Provider: 02/08/24 21:09 Source: patient Mode of arrival: ambulatory Limitations: no limitations History of Present Illness HPI Narrative: Patient is a very nice 63-year-old female presents here for evaluation of a fever slight cough an illness that is been for the last 3 days. She notes that her was sick with similar symptoms but is that is recovered from it. She describes body aches, slight headache, slight cough, no nausea vomiting denies any abdominal pain, dysuria frequency or rashes. She denies any leg discomfort, shortness of breath, or feeling she might pass out. Temperature was a 102? at home, here it is a little bit less. She took Tylenol at approximately 8:30 a.m.. She was taking some ibuprofen earlier but has stopped this, does she says it makes her stomach a little bit heel. MD elicited complaint: fever Associated symptoms: chills, myalgias, headache and sore throat Treatments prior to arrival fever: acetaminophen Related Data Home Medications ?Medication ?Instructions ?Recorded ?Confirmed aspirin 81 mg tablet,delayed 81 mg PO DAILY 02/20/22 12/16/23 release cetirizine 10 mg tablet 10 mg PO BID 02/20/22 12/16/23 cholecalciferol (vitamin D3) 25 2,000 unit PO DAILY 02/20/22 12/16/23 mcg (1,000 unit) tablet prednisone 20 mg tablet 20 mg PO BID PRN 11/27/23 12/16/23 multivitamin 1 tab PO QAM 12/08/23 12/16/23 vitamin B complex 1 tab PO QDAY 12/08/23 12/16/23 Previous Rx's ?Medication ?Instructions ?Recorded epinephrine 0.3 mg/0.3 mL 0.3 ml IM ONCE PRN 01/09/23 injection, auto-injector hypersensitivity reaction #2 ea glipizide 10 mg tablet, extended 20 mg (2 x 10 mg) PO DAILY #180 09/15/23 release 24 hr tabs pioglitazone 15 mg tablet 15 mg PO QDAY #90 tabs 09/15/23 propranolol 80 mg capsule,24 80 mg PO DAILY #90 caps 09/15/23 hr,extended release simvastatin 20 mg tablet 20 mg PO QHS #90 tabs 09/15/23 sitagliptin phosphate 100 mg 100 mg PO DAILY #90 tabs 09/15/23 tablet (Januvia) Allergies Allergy/AdvReac Type Severity Reaction Status Date / Time cephalexin Allergy Unknown Verified 12/16/23 15:32 dulaglutide Allergy Unknown Verified 12/16/23 15:32 exenatide Allergy Unknown Verified 12/16/23 15:32 metformin Allergy Unknown Verified 12/16/23 15:32 penicillin G Allergy Unknown Verified 12/16/23 15:32 phenol Allergy Unknown Verified 12/16/23 15:32 Erythromycin Allergy Unknown Uncoded 12/16/23 15:32 Sulfa Antibiotics Allergy Unknown Uncoded 12/16/23 15:32 Review of Systems Status of ROS Reports: 10 or more systems reviewed and unremarkable except as noted in History and below PFSH ON LICENSE OF [facility] Medical History Constipation ?K59.00 - Constipation, unspecified (ICD-10) History of anaphylaxis ?Z87.892 - Personal history of anaphylaxis (ICD-10) Surgical History Status post hysterectomy ?Z90.710 - Acquired absence of both cervix and uterus (ICD-10) Status post cholecystectomy ?Z90.49 - Acquired absence of other specified parts of digestive tract (ICD- 10) Status post delivery ?Z98.891 - History of uterine scar from previous surgery (ICD-10) Status post carpal tunnel release ?Z98.890 - Other specified postprocedural states (ICD-10) Status post breast biopsy ?Z98.890 - Other specified postprocedural states (ICD-10) History of surgery on upper extremity ?Z98.890 - Other specified postprocedural states (ICD-10) Social History Smoking Status: Never smoker Do you use any of these nicotine containing products: None Second hand tobacco smoke exposure: No How often do you have a drink containing alcohol: never How often do you have six or more drinks on one occasion: Never AUDIT-C Alcohol total score: 0 Non-prescribed substance use: denies use Little interest or pleasure in doing things: not at all Feeling down, depressed, or hopeless: not at all service: No Exam Narrative Exam Narrative: On examination she is in no apparent distress she is pleasant and alert. Speaking to me normally nontoxic looking, pupils equal round reactive to light there is no scleral icterus redness or TMs are normal bilaterally her oropharynx is normal with excellent hydration status, neck is supple full range of motion absence of meningismus is noted, her chest is good air entry bilaterally with no wheezing crackles noted heart sounds no clicks murmurs or gallops her abdomen is soft, there is no guarding no organomegaly no CVA tenderness is noted, she moves all extremities independently and well. Skin reveals no petechiae rashes. Const Vital Signs, click to edit/add: Vital Signs - 24 hr 02/08/24 21:49 02/08/24 23:17 Temperature 100.2 F H 97.7 F Pulse Rate [Pulse Oximeter] 86 Respiratory Rate 16 16 Blood Pressure [Right Upper Arm] 160/85 H Pulse Oximetry 91 93 Oxygen Delivery Method Room Air Room Air Documenting provider has reviewed patient's vital signs: yes Course Course ED Course: I discussed with her, she is positive for COVID unfortunately she is on a statin, and is not a candidate for Paxlovid. I went over symptomatic treatment and things to watch for, she will come back and be seen if these occur, she was very comfortable with this and left ambulatory. Vital Signs Vital signs: Initial Vital Signs Temperature 100.2 F H 02/08/24 21:49 Temperature Source Temporal Artery Scan 02/08/24 21:49 Pulse Rate 86 02/08/24 21:49 Respiratory Rate 16 02/08/24 21:49 Blood Pressure 160/85 H 02/08/24 21:49 Blood Pressure Mean 110 H 02/08/24 21:49 Blood Pressure Position Sitting 02/08/24 21:49 Pulse Oximetry 91 02/08/24 21:49 Oxygen Delivery Method Room Air 02/08/24 21:49 Vital Signs Temperature 100.2 F H 02/08/24 21:49 Pulse Rate 86 02/08/24 21:49 Respiratory Rate 16 02/08/24 21:49 Blood Pressure 160/85 H 02/08/24 21:49 Pulse Oximetry 91 02/08/24 21:49 Oxygen Delivery Method Room Air 02/08/24 21:49 Temperature 97.7 F 02/08/24 23:17 Pulse Rate 86 02/08/24 21:49 Respiratory Rate 16 02/08/24 23:17 Blood Pressure 160/85 H 02/08/24 21:49 Pulse Oximetry 93 02/08/24 23:17 Oxygen Delivery Method Room Air 02/08/24 23:17 MDM - Fever MDM Narrative Medical decision making narrative: Life-threatening differential diagnosis is include meningitis, encephalitis, pneumonia, intra-abdominal infection, bacteremia, other differential diagnosis include but are not limited to viral upper respiratory tract infection, strep, urinary tract infection, skin infection, osteomyelitis, influenza, fungal infections, diskitis, epidural abscess, or fever of unknown origin. Medical Records Attestation: I reviewed the patient's medical records. Lab Data Attestation: I reviewed the patient's lab results. Labs: Lab Results 02/08/24 Range/Units 22:22 SARS-CoV-2 (PCR) POSITIVE SARS-CoV-2 A (Negative) Influenza Type A (PCR) Negative PCR FLU A (Negative) Influenza Type B (PCR) Negative PCR FLU B (Negative) RSV (PCR) Negative PCR RSV (Negative) Imaging Data Chest x-ray: Attestation: I have reviewed the pertinent imaging results. My impression: No acute changes seen on her chest x-ray, Discharge Plan Discharge Clinical Impression: COVID Patient Disposition: Home w/ Parent or Adult Condition: Stable Instructions: How To Wash Your Hands (ED), COVID-19 (Coronavirus Disease 2019) (ED), COVID-19: Slow the Coronavirus Spread (ED), How to Recover from COVID-19 at Home (ED) Additional Instructions: Home, rest, Tylenol every 6 hours, she can take 1 g, rest fluids, return here if increasing shortness of breath chest pain, or leg swelling, usually people improve after approximately 5 days, the fatigue can last longer, secondary infection is also something that can occur so he has developed a fever after getting well, I would worry about a pneumonia. Isolate for 5 days, unfortu nately with the statin, your not a candidate for the Paxlovid. Activity Level: Light activity Prescriptions: No Action aspirin 81 mg tablet,delayed release (DR/EC) 81 mg PO DAILY cetirizine 10 mg tablet 10 mg PO BID cholecalciferol (vitamin D3) 25 mcg (1,000 unit) tablet 2,000 unit PO DAILY vitamin B complex Tablet 1 tab PO QDAY multivitamin Tablet 1 tab PO QAM glipizide 10 mg tablet extended release 24hr 20 mg PO DAILY Qty: 180 1RF pioglitazone 15 mg tablet 15 mg PO QDAY Qty: 90 3RF propranolol 80 mg capsule,extended release 24hr 80 mg PO DAILY Qty: 90 3RF simvastatin 20 mg tablet 20 mg PO QHS Qty: 90 3RF Januvia 100 mg tablet 100 mg PO DAILY Qty: 90 3RF prednisone 20 mg tablet 20 mg PO BID PRN epinephrine 0.3 mg/0.3 mL auto-injector 0.3 ml IM ONCE PRN (Reason: hypersensitivity reaction) Qty: 2 2RF Follow Up/Referrals: Jean-Claude March MD [Primary Care Provider] - Stand Alone Forms: [facility] Info Instructions
== END 2024-02-08 23:51 | disposition home or self-care (01) ==
PROVIDERS: Emergency Provider Family Medicine; PCP Internal Medicine
DX: U07.1 COVID-19 (principal)
CPT/HCPCS: 71046; 87631; 99284

== ENCOUNTER 2024-07-23 00:24 | Emergency (ER) | payer BC, SELFPAY ==
--- OUTSIDE RECORDS SUMMARY | 2024-07-23 00:27 | XMS_ITS | Continuity of Care Document ---
Author Name NwHIN User FlorinleMN-a llowed Address Unknown Organization Unknown Address Unknown Procedures FILTER APPLIED:Only known Procedures with Onset Date within the last 5 years Procedure Date Procedure Provider Additiona l Information Status HPYLORI STOOL AG IA (65161) Completed CT ABD PELV W/CONTRAST (92409) Completed COMPREHEN METABOLIC PANEL (10055) Completed UR ALBUMIN QUANTITATIVE (49570) Completed ASSAY OF URINE CREATININE (47333) Completed IMMUNOASSAY QUANT NOS NONAB (48627) Completed COMPREHEN METABOLIC PANEL (24700) Completed LIPID PANEL (90197) Comp leted Encounters FILTER APPLIED:Only known Encounters with Admission Date within the last 5 years Encounter Location Admission Discharge Billing Code [employer] A ttender Outpatient [facility]
[2024-07-23 00:37] VITALS: BP 157/71; PULSE 72; RESP 18; TEMP 37.7; O2SAT 94; BMI 31.5
--- NOTE | 2024-07-23 01:12 | CRLHL7_ITS ---
For Patients: As a result of the Cures Act, medical imaging exams and procedure reports are released immediately into your electronic medical record. You may view this report before your referring provider. If you have questions, please contact your health care provider. INDICATION: Shortness of breath. TECHNIQUE: Chest 2 views. COMPARISON: February 08, 2024. FINDINGS: Cardiovascular and mediastinum: Cardiomediastinal silhouette is within normal limits. Lungs and pleural spaces: Lungs are clear. No sign of pleural effusion. No pneumothorax. Bones and soft tissues: No significant findings. IMPRESSION: No acute findings and no significant change from the prior exam. Dictated by Patric Plunkett MD @ 07/23/2024 1:48:15 AM (Electronically Signed)
--- OUTSIDE RECORDS SUMMARY | 2024-07-23 01:19 | XMS_ITS | Continuity of Care Document ---
Author Name NwHIN User FlorinleMN-a llowed Address Unknown Organization Unknown Address Unknown Procedures FILTER APPLIED:Only known Procedures with Onset Date within the last 5 years Procedure Date Procedure Provider Additiona l Information Status HPYLORI STOOL AG IA (42520) Completed CT ABD PELV W/CONTRAST (26461) Completed COMPREHEN METABOLIC PANEL (54781) Completed UR ALBUMIN QUANTITATIVE (29008) Completed ASSAY OF URINE CREATININE (57883) Completed IMMUNOASSAY QUANT NOS NONAB (74855) Completed COMPREHEN METABOLIC PANEL (63823) Completed LIPID PANEL (96010) Comp leted Encounters FILTER APPLIED:Only known Encounters with Admission Date within the last 5 years Encounter Location Admission Discharge Billing Code Statistics Manager A [facility]
[2024-07-23 01:20] LABS: PCR FLU A Negative PCR FLU A (Negative); PCR FLU B Negative PCR FLU B (Negative); PCR RSV Negative PCR RSV (Negative); SARS PCR* Negative SARS-CoV-2 (Negative)
[2024-07-23] MEDS: predniSONE 10 MG TABLET 50 MG PO (01:46)
[2024-07-23] MEDS: IPRAT-ALBUT 0.5-2.5 MG/3 ML NEB 1 NEB IH (01:46)
--- NOTE | 2024-07-23 02:14 | ED.GENADULT ---
HPI - General Adult General Date Seen: 07/23/24 Chief complaint: Cough Stated complaint: Low oxygen, cough Time Seen by Provider: 07/23/24 00:57 Source: patient Mode of arrival: ambulatory Limitations: no limitations History of Present Illness HPI narrative: Patient is a 63-year-old female who has been sick for the past 3-4 days with cough and chest congestion. She has had low-grade fevers but no high fever. She has use some [id number] meds. Tonight she became concerned when she put on her oximeter and it read that her oxygen saturation was only 89%. She does feel tight chested. She has never had to use an inhaler or prednisone for her breathing. She is a nonsmoker. She did not have a flu vaccine in the fall. Related Data Home Medications ?Medication ?Instructions ?Recorded ?Confirmed aspirin 81 mg tablet,delayed 81 mg PO DAILY 02/20/22 07/08/24 release cetirizine 10 mg tablet 10 mg PO BID 02/20/22 07/08/24 cholecalciferol (vitamin D3) 25 2,000 unit PO DAILY 02/20/22 07/08/24 mcg (1,000 unit) tablet prednisone 20 mg tablet 20 mg PO BID PRN 11/27/23 07/08/24 multivitamin 1 tab PO QAM 12/08/23 07/08/24 Previous Rx's ?Medication ?Instructions ?Recorded epinephrine 0.3 mg/0.3 mL 0.3 ml IM ONCE PRN 01/09/23 injection, auto-injector hypersensitivity reaction #2 ea propranolol 80 mg capsule,24 80 mg PO DAILY #90 caps 02/26/24 hr,extended release simvastatin 20 mg tablet 20 mg PO QHS #90 tabs 02/26/24 sitagliptin phosphate 100 mg 100 mg PO DAILY #90 tabs 02/26/24 tablet (Januvia) clindamycin HCl 150 mg capsule 150 mg PO TID #15 caps 04/20/24 glipizide 10 mg tablet, extended 20 mg (2 x 10 mg) PO DAILY #180 07/14/24 release 24 hr tabs pioglitazone 30 mg tablet 30 mg PO QDAY #90 tabs 07/20/24 azithromycin 250 mg tablet See Rx Instructions PO .COMPLEX #6 07/23/24 (Zithromax Z-Tadeo) tabs prednisone 50 mg tablet 50 mg PO DAILY #5 tabs 07/23/24 Allergies Allergy/AdvReac Type Severity Reaction Status Date / Time Sulfa (Sulfonamide Allergy Intermediate Rash Verified 07/23/24 00:39 Antibiotics) adhesive tape Allergy Mild irritated Verified 07/23/24 00:39 skin cephalexin Allergy Unknown Verified 07/23/24 00:39 dulaglutide Allergy Unknown Verified 07/23/24 00:39 exenatide Allergy Unknown Verified 07/23/24 00:39 metformin Allergy Unknown Verified 07/23/24 00:39 penicillin G Allergy Unknown Verified 07/23/24 00:39 phenol Allergy Unknown Verified 07/23/24 00:39 Erythromycin Allergy Unknown Uncoded 07/08/24 14:44 Review of Systems Narrative: Review of systems is outlined above otherwise noted to be negative. She has type 2 diabetes, hypertension, hyperlipidemia. [facility] Medical History (Updated 07/23/24 @ 01:46 by Omid Vasquez MD) Vertigo ?R42 - Dizziness and giddiness (ICD-10) Constipation ?K59.00 - Constipation, unspecified (ICD-10) History of anaphylaxis ?Z87.892 - Personal history of anaphylaxis (ICD-10) Surgical History Status post hysterectomy ?Z90.710 - Acquired absence of both cervix and uterus (ICD-10) Status post cholecystectomy ?Z90.49 - Acquired absence of other specified parts of digestive tract (ICD-10) Status post delivery ?Z98.891 - History of uterine scar from previous surgery (ICD-10) Status post carpal tunnel release ?Z98.890 - Other specified postprocedural states (ICD-10) Status post breast biopsy ?Z98.890 - Other specified postprocedural states (ICD-10) History of surgery on upper extremity ?Z98.890 - Other specified postprocedural states (ICD-10) Social History Smoking Status: Never smoker Do you use any of these nicotine containing products: None Second hand tobacco smoke exposure: No How often do you have a drink containing alcohol: never How often do you have six or more drinks on one occasion: Never AUDIT-C Alcohol total score: 0 Non-prescribed substance use: denies use service: No Exam Narrative: Exam Narrative: Vitals noted. HEENT: Conjunctiva clear. Tympanic membranes are pearly white bilaterally. Posterior pharynx is clear without erythema or exudate. Neck is supple without adenopathy, thyromegaly, carotid bruit. Lungs: There is some mild expiratory wheezes. No localizing rales or rhonchi. Heart: Regular rate and rhythm without murmur. Abdomen: Soft and nontender. No guarding, rigidity, rebound. Bowel sounds are normal. No palpable masses. Extremities: No cyanosis or edema. Good distal pulses. Skin: No abnormalities noted of the exposed skin. Neurologic: Awake, alert, fully oriented. Neurologic exam is nonfocal. Const: Vital Signs, click to edit/add: Vital Signs - 24 hr 07/23/24 00:37 Temperature 99.8 F H Pulse Rate [Right Pulse Oximeter] 72 Respiratory Rate 18 Blood Pressure [Ri ght Upper Arm] 157/71 H Pulse Oximetry 94 Oxygen Delivery Me thod Room Air Course Course ED Course: Patient is seen and examined. Chest x-ray is unremarkable. Triple swab is completely negative. She is given prednisone 50 mg orally and a DuoNeb with some improvement. She was never hypoxic. Vital Signs Vital signs: Initial Vital Signs Temperature 99.8 F H 07/23/24 00:37 Temperature Source Temporal Artery Scan 07/23/24 00:37 Pulse Rate 72 07/23/24 00:37 Pulse Rhythm Regular 07/23/24 00:37 Pulse Strength 3+ Normal 07/23/24 00:37 Respiratory Rate 18 07/23/24 00:37 Respiratory Effort Normal 07/23/24 00:37 Respiratory Depth Normal 07/23/24 00:37 Blood Pressure 157/71 H 07/23/24 00:37 Blood Pressure Mean 99 07/23/24 00:37 Blood Pressure Position Sitting 07/23/24 00:37 Pulse Oximetry 94 07/23/24 00:37 Oxygen Delivery Method Room Air 07/23/24 00:37 Vital Signs Temperature 99.8 F H 07/23/24 00:37 Pulse Rate 72 07/23/24 00:37 Respiratory Rate 18 07/23/24 00:37 Blood Pressure 157/71 H 07/23/24 00:37 Pulse Oximetry 94 07/23/24 00:37 Oxygen Delivery Method Room Air 07/23/24 00:37 Temperature 99.8 F H 07/23/24 00:37 Pulse Rate 72 07/23/24 00:37 Respiratory Rate 18 07/23/24 00:37 Blood Pressure 157/71 H 07/23/24 00:37 Pulse Oximetry 94 07/23/24 00:37 Oxygen Delivery Method Room Air 07/23/24 00:37 Medications Administered Medications: Discontinued Medications Generic Name Dose Route Start Last Admin Trade Name Nisha PRN Reason Stop Dose Admin Albuterol/Ipratropium 1 neb 07/23/24 01:13 07/23/24 01:46 Iprat-Albut 0.5-2.5 Mg/3 Ml Neb IH 07/23/24 01:14 1 neb ONCE ONE Administration Prednisone 50 mg 07/23/24 01:27 07/23/24 01:46 Prednisone 10 Mg Tablet PO 07/23/24 01:28 50 mg ONCE ONE Administration Medical Decision Making Lab Data Labs: Lab Results 07/23/24 Range/Units 00:36 SARS-CoV-2 (PCR) Negative SARS-CoV-2 (Negative) Influenza Type A (PCR) Negative PCR FLU A (Negative) Influenza Type B (PCR) Negative PCR FLU B (Negative) RSV (PCR) Negative PCR RSV (Negative) Discharge Plan Discharge Clinical Impression: Asthmatic bronchitis Patient Disposition: Home, Self-Care Condition: Improved Additional Instructions: Rest, fluids, humidity, Zithromax x 5 days, Prednisone 50 mg daily x 5 days. Follow up in the clinic if no better in 3-5 days. Activity Level: No Restrictions Discharge Diet: Regular Prescriptions: New azithromycin [Zithromax Z-Tadeo] 250 mg tablet See Rx Instructions .ROUTE .COMPLEX Qty: 6 0RF Rx Instructions: For 250 mg dose pack: take 500 mg today (day 1), then 250 mg for 4 days (days 2-5) prednisone 50 mg tablet 50 mg PO DAILY Qty: 5 0RF No Action aspirin 81 mg tablet,delayed release (DR/EC) 81 mg PO DAILY cetirizine 10 mg tablet 10 mg PO BID cholecalciferol (vitamin D3) 25 mcg (1,000 unit) tablet 2,000 unit PO DAILY multivitamin Tablet 1 tab PO QAM propranolol 80 mg capsule,extended release 24 hr 80 mg PO DAILY Qty: 90 3RF simvastatin 20 mg tablet 20 mg PO QHS Qty: 90 3RF Januvia 100 mg tablet 100 mg PO DAILY Qty: 90 3RF clindamycin HCl 150 mg capsule 150 mg PO TID Qty: 15 0RF prednisone 20 mg tablet 20 mg PO BID PRN epinephrine 0.3 mg/0.3 mL auto-injector 0.3 ml IM ONCE PRN (Reason: hypersensitivity reaction) Qty: 2 2RF glipizide 10 mg tablet extended release 24hr 20 mg PO DAILY Qty: 180 3RF pioglitazone 30 mg tablet 30 mg PO QDAY Qty: 90 3RF Follow Up/Referrals: Jean-Claude March MD [Primary Care Provider] - Stand Alone Forms: [facility] Info Instructions
== END 2024-07-23 01:50 | disposition home or self-care (01) ==
PROVIDERS: Emergency Provider Family Medicine; PCP Internal Medicine
DX: J45.901 Unspecified asthma with (acute) exacerbation (principal)
CPT/HCPCS: 71046; 87631; 99282; 99283; J7512

== ENCOUNTER 2024-09-07 14:24 | Outpatient (CLI) | payer BC, SELFPAY | END 2024-09-07 14:25 | disposition home or self-care (01) | PROVIDERS: PCP Internal Medicine; Visit Provider Internal Medicine | DX: R53.83 Other fatigue (principal) | CPT/HCPCS: 80053 ==

== ENCOUNTER 2024-10-04 15:24 | Outpatient (CLI) | payer BC, SELFPAY | END 2024-10-04 15:25 | disposition home or self-care (01) | PROVIDERS: PCP Internal Medicine; Visit Provider Internal Medicine | DX: R00.2 Palpitations (principal) | CPT/HCPCS: 83735; 84443 ==

== ENCOUNTER 2024-12-01 14:22 | Outpatient (CLI) | payer BC, SELFPAY ==
--- NOTE | 2024-12-01 14:30 | CRLHL7_ITS ---
For Patients: As a result of the Century Cures Act, medical imaging exams and procedure reports are released immediately into your electronic medical record. You may view this report before your referring provider. If you have questions, please contact your health care provider. XR DXA Bone Mineral Density (BMD) Reason for exam: Screening. Current height (in): 68. Weight (lb): 211. Menopause age: 53. Ethnicity: White. 1. Have you had a previous hip or vertebral fracture? No. 2. Have you had any fractures during your adult life which did not result from significant trauma (e.g., auto accident)? No. 3. Did either of your parents have a hip fracture? No. 4. Do you smoke? No. 5. Have you ever taken Glucocorticoids? Yes. 6. Do you have rheumatoid arthritis? No. 7. Do you have secondary osteoporosis? No. 8. Do you drink 3 or more alcoholic drinks per day? No. 9. Are you being treated for osteoporosis? No. 10. Have you ever taken any of the following medications: Actonel, Evista, Fosamax, Miacalcin, Reclast, Boniva, Forteo, HRT (i.e. estrogen/hormone therapy), Protelos, Prolia, Vitamin D, Calcium, other ??? please specify. ANSWER: Yes, HRT (i.e. estrogen/hormone therapy, vitamin D, calcium. 11. Do you have any of the following medical conditions: Anorexia or bulimia, asthma or emphysema, end stage renal disease, hyperparathyroidism, any seizure disorders, cancer, inflammatory bowel diseases, hysterectomy, other ??? please specify. ANSWER: Yes, hysterectomy. 12. What was your maximum height (inches)? 68. 13. Do you perform weight bearing exercise regularly? No. 14. Do you regularly consume dairy products? Yes. 15. Do you drink caffeinated beverages? No. 16. At what age did your period start? 11. 17. Are you premenopausal? No. 18. How many full term pregnancies have you had? 6. 19. Have you ever missed your period for more than 6 months in a row (not including or menopause)? No. TECHNIQUE: Bone mineral density study was performed using the [employer]. FINDINGS: The results of the study expressed as bone mineral density (BMD) are as follows: Lumbar spine L1 to L4: BMD: 0.901 g/cm2. T-score: -1.3. Z-score: 0.5. Neck Left: BMD: 0.637 g/cm2. T-score: -1.9. Z-score: -0.3. Right: BMD: 0.645 g/cm2. T-score: -1.8. Z-score: -0.3. Total Left: BMD: 0.784 g/cm2. T-score: -1.3. Z-score: -0.0. Right: BMD: 0.825 g/cm2. T-score: -1.0. Z-score: 0.3. IMPRESSION: Osteopenia. FRAX 10-year Fracture Risk Major Osteoporotic Fracture: 15 percent Hip Fracture: 2.4 percent Reported Risk Factors: [place] () Neck BMD=0.637, BMI=32.1, glucocorticoids Omid Kaplan M.D. Diagnostic Radiologist [email or web address] bM/Dictated by: Omid Kaplan MD @ 12/01/2024 3:57:00 PM (Electronically Signed)
== END 2024-12-01 14:23 | disposition home or self-care (01) ==
LOC: RAD 14:23
PROVIDERS: PCP Internal Medicine; Visit Provider Internal Medicine
DX: Z13.820 Encounter for screening for osteoporosis (principal); M85.89 Other specified disorders of bone density and structure, multiple sites
CPT/HCPCS: 77080

== ENCOUNTER 2024-12-24 10:45 | Outpatient (CLI) | payer BC, SELFPAY ==
--- NOTE | 2024-12-24 10:45 | CRLHL7_ITS ---
For Patients: As a result of the Century Cures Act, medical imaging exams and procedure reports are released immediately into your electronic medical record. You may view this report before your referring provider. If you have questions, please contact your health care provider. DIGITAL DIAGNOSTIC BILATERAL MAMMOGRAM USING TOMOSYNTHESIS AND COMPUTER-AIDED DETECTION BILATERAL BREAST ULTRASOUND CLINICAL HISTORY: BILATERAL breast pain. COMPARISON: 02/28/2022, 06/07/2021, 03/27/2020. TECHNIQUE: Digital BILATERAL mammogram in four projections with computer-aided detection. Tomosynthesis was used in this interpretation. Real-time ultrasound imaging of BILATERAL breast with imaging documentation. BREAST COMPOSITION: The breasts are heterogeneously dense, which may obscure small masses. FINDINGS: 3D CC/MLO BILATERAL mammogram images submitted. No suspicious masses or architectural distortion. Biopsy clip on the LEFT. No suspicious calcifications or axillary adenopathy. Targeted LEFT breast ultrasound performed in the subareolar space. In this location, there are small benign circumscribed anechoic cysts measuring up to 6 millimeters. Normal fibroglandular tissue at 3 o`clock 4 cm from the nipple. Targeted RIGHT breast ultrasound performed at 9 o`clock 6 cm from the nipple. Cystic structure with internal echoes noted at mid depth which measures 8 millimeters. IMPRESSION: No suspicious findings. BILATERAL fibrocystic changes. No evidence of malignancy. RECOMMENDATIONS: Routine screening mammography. A lay language report of this examination will be provided to the patient. BI-RADS Category 2: Benign Dictated by Omid Kaplan MD @ 12/24/2024 11:53:35 AM jj/Dictated by: Omid Kaplan MD @ 12/24/2024 11:53:00 AM (Electronically Signed)
--- NOTE | 2024-12-24 11:15 | CRLHL7_ITS ---
For Patients: As a result of the Cures Act, medical imaging exams and procedure reports are released immediately into your electronic medical record. You may view this report before your referring provider. If you have questions, please contact your health care provider. SEE DIGITAL DIAGNOSTIC BILATERAL MAMMOGRAM PERFORMED SAME DAY CRL:kostas kenyon/Dictated by: Omid Kaplan MD @ 12/24/2024 11:51:00 AM (Electronically Signed)
== END 2024-12-24 10:46 | disposition home or self-care (01) ==
LOC: MAMMO 10:46
PROVIDERS: PCP Internal Medicine; Visit Provider Internal Medicine
DX: N64.4 Mastodynia (principal); R92.333 Mammographic heterogeneous density, bilateral breasts
CPT/HCPCS: 76642; 77066; G0279

== ENCOUNTER 2025-05-19 15:44 | Outpatient (CLI) | payer BC, SELFPAY | END 2025-05-19 15:45 | disposition home or self-care (01) | LOC: NFLDREF 15:45 | PROVIDERS: PCP Internal Medicine; Visit Provider Internal Medicine | DX: I10 Essential (primary) hypertension (principal) | CPT/HCPCS: 84443 ==

== ENCOUNTER 2025-06-25 22:13 | Emergency (ER) | payer BC, SELFPAY ==
--- OUTSIDE RECORDS SUMMARY | 2017-01-20 04:31 | XMS_ITS | Continuity of Care Document ---
Author Organization [facility] Address [address] [address] [place] [address] Care Team Providers Care Correctional Supervising Cook Name Role Phone [place], [place] Unavailable Unav ailable Procedures Procedure Date Ugi En Advance Directives Directive Yes / No Effective Date File Name No Information Encounters Encounter Description Practice Location Reason(s) For Visit Diagnoses Date Provider Providers Copied on Encounter [facility], [address] [address], [place], [place], [id number], [place] [facility] No Information [facility]. [address] [address], [place], [place], [id number], . tel:[phone] Referring Provider: Kalin Recinos MD, [address] [facility] [address], [place], [address] . tel:[phone] Family History Family Member Type Diagnosis Age At Onset No Information Payers Payer name Insurance type Covered alliance party ID Authoriza tion(s) No Information Social History Type Description Quantity Date Captured Comments Sex Female Smoking Status No Information Chief Complaint And Reason For Visit No Information Reason For Referral Reason For Referral No Information History Of Present Illness Encounter Date Complaint History Of Prese nt Illness No Information Functional Status Date Functional Assessmen t No Information Instructions Date Instruction Additional Infor mation No Information Assessments Type Assessment Date No Information Patient Care Teams Name Effective Dates (start - stop) Status Members No Information
--- OUTSIDE RECORDS SUMMARY | 2020-05-25 09:01 | XMS_ITS | Continuity of Care Document ---
Author Organization [facility] Address [address] [address] [place] [address] Phone Care Team Providers Care Lab Support Technician Name Role Phone Adarsh ANDRALindsay Unavailable Unavailable Allergies, Adverse Reactions, Alerts Substance Reaction Status Criticality OXYCODONE HCL rash hives Active No Information acetaminophen rash hives Active No Information CEPHALEXIN MONOHYDRATE rash Active No In formation exenatide red, itchy Active No Information dulaglutide hiveshives Active No Information erythromycin base rash Active No Informa tion ethyl alcohol rash Active No Information penicillin G rash Active No Information Sulfa (Sulfonamide Antibiotics) rash Active No Information Medications Medication Instructions Dosage Effective Dates (start - stop) Status Comments Zyrtec 10 mg capsule take [address] e every day 1 - Active Januvia 50 mg tablet take 1 Tablet by oral route every day 50 MG - Active epinephrine 0.3 mg/0.3 mL injection, auto-injector inject 0.3 milliliter by intramuscular route once as needed for anaphylaxis 0.3 MG - Active Flonase Allergy Relief 50 mcg/actuation nasal spray,suspension inhale 2 spray by intranasal route every day in each nostril 100 MCG - Active ibuprofen 200 mg tablet take 2 Tablet by ORAL route every day as needed with food 400 MG - Active propranolol ER 80 mg capsule,24 hr,extended release take 1 capsule by oral route every day 80 MG - Active aspirin 81 mg tablet,delayed release take 1 tablet by oral route every day 81 MG - Active simvastatin 10 mg tablet take 1 tablet by oral route every day in the evening 10 MG - Active hydrocortisone 0.5 % Ointment as needed - Active doxycycline hyclate 100 mg tablet take 1 tablet by oral route 2 times every day 100 MG - No Longer Active Procedures Procedure Date Colonoscopy Flex; Dx (sep Pro) 20 Medical nutrition therapy, initial, each 15 minutes Ugi Endo; W/bx 1/mx Level Iv-surg Path Gross/micro 17 Offic/outpt E&m New Mod-hi Colonoscopy Flex; Dx (sep Pro) 10 Advance Directives Directive Yes / No Effective Date File Name No Information Encounters Encounter Description Practice Location Reason(s) For Visit Diagnoses Date Provider Providers Copied on Encounter [facility] [place], [address] [address], [place], [place], [id number], [place] tel:[phone] [facility] No Information 0 Adarsh Montoya. [address] [facility], [place], [address], [place]. tel:[phone] Referring Provider: Samantha Gomez, [address] [facility] [address], [place], [address] . tel:[phone] [facility] [facility] [place], [address] [address], [place], [address], [place] tel:[phone] [facility] Screening ColonoscopyEncou nter for screening for malignant neoplasm of colon 0 Ashley Singh. [address] [facility], [place], [place], [address], [place]. tel:[phone] Ruperto Nuno MD. tel:[phone] erring Provider: Referral Self, USE FOR SELF REFERRALS. [facility] [place], [address] [address], [place], [id number], [place] tel:[phone] [facility] No Information 0 Ashley Singh. [address] [facility], [place], [address], [place]. tel:[phone] [facility], [address] [address], [place], [address], [place] tel:[phone] [facility] Other specified abnormal immunological findings in serum 7 Aleks Osorio. [address] [facility], [place], [place], [address], [place]. tel:[phone] Ruperto Nuno MD. [phone] erring Provider: Kalin Recinos MD, [address] [facility] [address], [facility], [address] . tel:[phone] [facility], [address] [address], [facility] [place], [address], [place] tel:[phone] [facility] Other specified abnormal immunological findings in serumAbdominal distension (gaseous)Other specified abnormal immunological findings in serumAbdominal distension (gaseous) 7 Grisel Gagnon. [address] [facility], [place], [place], [address], [place]. tel:[phone] Referring Provider: Radha Tyler, [address], [place], [address]. tel:[phone] Offic/outpt E&m [facility], [address] [address], [place], [address], [place] tel:[phone] [facility] GI Symptoms or Concerns (chief complaint) Slow transit constipationAbdo irina bloatingElevated anti-tissue transglutaminase (tTG) IgA level 7 Grisel Gagnon. [address] [facility], [place], [place], [address], [place]. [phone] [facility], [address] [address], [facility] [place], [address], [place] tel:[phone] [facility] Colon Cancer ScreeningColon Cancer Screening 0 No Information Referring Provider: Radha Tyler, [address], [place], [address]. tel:[phone] Family History Family Member Type Diagnosis Age At Onset Mother Problem (finding) diverticulitis of colon Daughter Problem (finding) gallbladder disease Mother Problem (finding) gallbladder disease Father Problem (finding) prostate cancer Mother Problem (finding) Cancer, basal cell Sister Problem (finding) asthma Daughter Problem (finding) Irritable bowel disease Daughter Problem (finding) asthma Brother Problem (finding) asthma Son Problem (finding) asthma Immunizations Vaccine Date Status Comments Afluria Qd administered Note: [facility] bi-directional interface ; Source: Other Registry Influenza administered Note: [facility] bi-d irectional interface ; Source: Other Registry zoster vaccine recombinant administered N ote: [facility] bi-directional interface ; Source: Other Registry tetanus toxoid, reduced diphtheria toxoid, and acellular pertussis vaccine, adsorbed administered Note: [facility] b i-directional interface ; Source: Other Registry Afluria Qd administered Note: [facility] bi-directional interface ; Source: Other Registry Afluria Qd administered Note: [facility] bi-directional interface ; Source: Other Registry Afluria Qd administered Note: [facility] bi-directional interface ; Source: Other Registry zoster vaccine, live administered Note: [facility] bi-directional interface ; Source: Other Registry Afluria Qd administered Note: [facility] bi-directional interface ; Source: Other Registry Afluria Qd administered Note: [facility] bi-directional interface ; Source: Other Registry Influenza, seasonal, injecta ble, preservative free administered Note: [facility] bi-direct ional interface ; Source: Other Registry Influenza, seasonal, injectable administe red Note: [facility] bi- directional interface ; Source: Other Registry Pneumovax 23 administered Note: [facility] bi-d irectional interface ; Source: Other Registry Influenza, seasonal, injectable administe red Note: [facility] bi- directional interface ; Source: Other Registry Influenza, seasonal, injectable administe red Note: [facility] bi- directional interface ; Source: Other Registry tetanus toxoid, reduced diphtheria toxoid, and acellular pertussis vaccine, adsorbed administered Note: [facility] b i-directional interface ; Source: Other Registry Havrix administered Note: [facility] bi-d irectional interface ; Source: Other Registry Influenza, seasonal, injectable administe red Note: [facility] bi- directional interface ; Source: Other Registry Influenza, seasonal, injectable administe red Note: [facility] bi- directional interface ; Source: Other Registry Influenza, seasonal, injectable administe red Note: [facility] bi- directional interface ; Source: Other Registry Engerix-B administered Note: [facility] bi-d irectional interface ; Source: Other Registry Payers Payer name Insurance type Covered libertarian ID Xochilt tabor(s) Merary SIDHU [id number] Social History Type Description Quantity Date Captured Comments Sex Female Smoking Status No Information Chief Complaint And Reason For Visit No Information Reason For Referral Reason For Referral No Information Plan Of Treatment Date Type Action Status Referral Ordered: 07/03/2017 05:36 PM WHARF ATTENDANT: CCD sent. 07/03/2017 05:36 PM WHARF ATTENDANT: Message delivered to the recipient. (related to Abdominal bloating) ordered History Of Present Illness Encounter Date Complaint History Of Prese nt Illness GI Symptoms or Concerns This is a 56-year-old female who comes for evaluation of constipation and abnormal labs. She has a long history of GI complaints and has had bloating and intermittent diarrhea for the past 30 years. She did find that going on a lactose free diet was helpful. Over the past three years, she has been more constipated with generalized abdominal pain. She has also had hives, sinus allergies, and occasional cough. She went in to see an barbed wire machine operator who did a tTG, which was positive at 32. Of note, she did have a colonoscopy in 2009 for screening that was unremarkable. She has never had an upper endoscopy. She thinks her mom might have celiac disease as she has always had intestinal issues, but she has never been tested. She does have a grandchild with Crohn's disease. Other lab testing that she relates to me include normal CBC, sedimentation rate, electrolytes, kidney function, TSH, and elevated vitamin D. I have not seen those labs, but she recalls those all being checked within the Functional Status Date Functional Assessmen t No Information Instructions Date Instruction Additional Infor ananya Schedule upper endos copy with biopsy. I told her that I think that this is probably celiac and so I have set her up for a dietitian appointment to discuss celiac disease and I gave her our celiac folder with the patient educational materials today. I will check her outside labs. She will also likely need followup in our C[facility]ac [facility] to ensure resolution of the disease with normalized tTG over the next six months or so. Related to Slow transit constipation Celiac Folder Related to Slow transit constipation Assessments Type Assessment Date No Information Patient Care Teams Name Effective Dates (start - stop) Status Members No Information
[2025-06-25 22:41] VITALS: BP 220/84; PULSE 58; RESP 20; TEMP 36.4; O2SAT 96; BMI 31.9
--- NOTE | 2025-06-25 23:18 | ED.GENADULT ---
HPI - General Adult General Date Seen: 06/25/25 Chief complaint: Chest Pain Stated complaint: chest pressure, jaw pain Time Seen by Provider: 06/25/25 23:18 History of Present Illness HPI narrative: 64-year-old female with a history of hypertension, hyperlipidemia type 2 diabetes, migraine headaches, presenting to the ER tonight for evaluation of chest pain radiating to her jaw, also peripheral edema. She is on furosemide 20 mg each morning p.r.n., propranolol ER 80 mg p.o. daily. However, she filled but has never taken a dose of the furosemide.. She is also on glipizide ER 20 mg p.o. daily, pioglitazone 30 mg p.o. daily, Januvia 100 mg p.o. daily, simvastatin 20 mg p.o. daily, aspirin 81 mg daily. Blood pressure was 167/83 clinic. She has no known history of cardiovascular disease. She reports that she had a normal carotid ultrasound a couple of years ago. 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 She does not normally get chest pain so has not had any further stress testing since then. She notes that for about the past week or so she has had known a little bit worse than normal edema affecting both of her legs. As is usual for her, the edema is is asymmetrically worse in her right leg than the left. She says she has ?less veins? in the right leg. Today she was doing normal activity and putting up [employer] decorations. She reports that she forgot to eat or drink anything all day today. At about 4:00 p.m. she began to have a pressure-like discomfort in her upper chest. She says it felt like a gentle hand pushing on her chest. She was not sure if it was her heart or possibly reflux. She tried to sit down and rest. She took some ibuprofen. Later the pain also started to radiate to the corner of her left jaw and left ear and then after that her left arm. It has been present ever since 4:00 p.m.. She is not short of breath. No palpitations. No nausea. No abdominal pain. No back pain. No recent cough or fever. The pain is not her to breathe in and out. No history of asthma or lung disease. No tobacco use. Related Data Home Medications ?Medication ?Instructions ?Recorded ?Confirmed aspirin 81 mg tablet,delayed 81 mg PO DAILY 02/20/22 05/19/25 release cetirizine 10 mg tablet 10 mg PO BID 02/20/22 05/19/25 multivitamin 1 tab PO QAM 12/08/23 05/19/25 vitamin B complex 1 tab PO QDAY 11/17/24 05/19/25 Previous Rx's ?Medication ?Instructions ?Recorded epinephrine 0.3 mg/0.3 mL 0.3 ml IM ONCE PRN 08/31/24 injection, auto-injector hypersensitivity reaction #2 ea furosemide 20 mg tablet (Lasix) 20 mg PO QAM PRN edema #20 tabs 11/17/24 propranolol 80 mg capsule,24 80 mg PO DAILY #90 caps 03/09/25 hr,extended release simvastatin 20 mg tablet 20 mg PO QHS #90 tabs 03/09/25 sitagliptin phosphate 100 mg 100 mg PO DAILY #90 tabs 03/09/25 tablet (Januvia) azithromycin 250 mg tablet See Rx Instructions PO .COMPLEX #6 05/19/25 (Zithromax Z-Tadeo) tabs glipizide 10 mg tablet, extended 20 mg (2 x 10 mg) PO DAILY #180 06/06/25 release 24 hr tabs pioglitazone 30 mg tablet 30 mg PO QDAY #90 tabs 06/06/25 Allergies Allergy/AdvReac Type Severity Reaction Status Date / Time Sulfa (Sulfonamide Allergy Intermediate Rash Verified 11/17/24 14:29 Antibiotics) adhesive tape Allergy Mild irritated Verified 11/17/24 14:29 skin cephalexin Allergy Unknown Verified 11/17/24 14:29 dulaglutide Allergy Unknown Verified 11/17/24 14:29 exenatide Allergy Unknown Verified 11/17/24 14:29 metformin Allergy Unknown Verified 11/17/24 14:29 penicillin G Allergy Unknown Verified 11/17/24 14:29 EKG electrodes Allergy Mild Uncoded 11/17/24 14:29 medical tape Allergy Mild Uncoded 11/17/24 14:29 Erythromycin Allergy Unknown Uncoded 11/17/24 14:29 PFSH PFS Medical History (Updated 06/26/25 @ 01:07 by Jose F Hearn MD) Sinusitis ?J32.9 - Chronic sinusitis, unspecified (ICD-10) 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 - Genetic susceptibility to other disease (ICD-10) 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 deficiency (ICD-10) Right hip pain ?M25.551 - Pain in right hip (ICD-10) History of anaphylaxis ?Z87.892 - Personal history of anaphylaxis (ICD-10) Surgical History Status post hysterectomy ?Z90.710 - Acquired absence of both cervix and uterus (ICD-10) Status post cholecystectomy ?Z90.49 - Acquired absence of other specified parts of digestive tract (ICD-10) Status post delivery ?Z98.891 - History of uterine scar from previous surgery (ICD-10) Status post carpal tunnel release ?Z98.890 - Other specified postprocedural states (ICD-10) Status post breast biopsy ?Z98.890 - Other specified postprocedural states (ICD-10) History of surgery on upper extremity ?Z98.890 - Other specified postprocedural states (ICD-10) Social History (Updated 11/17/24 @ 16:18 by Ilda Link ~ [facility]) What is your current living situation?: I presently have a place to live Problems where you live: declined to answer In the past 12 months, utilities in danger of being shut off: no In past 12 months, lack of transportation kept you from medical appts, meetings, work, or getting things needed for daily living: no In the past 12 mos, have been you worried that your food would run out before you had money to buy more?: never true In the past 12 mos, the food you bought just didn't last and you didn't have money to buy more?: never true Smoking Status: Never smoker Do you use any of these nicotine containing products: None Second hand tobacco smoke exposure: No How often do you have a drink containing alcohol: never How often do you have six or more drinks on one occasion: Never AUDIT-C Alcohol total score: 0 Non-prescribed substance use: denies use How often does anyone, including family, friends and others, physically hurt you: never How often does anyone, including family, friends and others, insult or talk down to you: never How often does anyone, including family, friends and others, threaten you with harm: never How often does anyone, including family, friends and others, scream or curse at you: never service: No Exam Narrative: Exam Narrative: Constitutional: Appears well-developed and well-nourished. Alert. Conversant. Non toxic. HENT: Head: Atraumatic. Nose: Nose normal. Mouth/Throat: Oral mucosa is clear and moist. no trismus. Pharynx normal. Tonsils symmetric. No tonsillar enlargement, erythema, or exudate. Eyes: Conjunctivae normal. EOM normal. Pupils equal, round, and reactive to light. No scleral icterus. Neck: Normal range of motion. Neck supple. No tracheal deviation present. No JVD Cardiovascular: Normal rate, regular rhythm. No gallop. No friction rub. No murmur heard. Symmetric radial and PT artery pulses Pulmonary/Chest: Effort normal. No stridor. No respiratory distress. No wheezes. No rales. No rhonchi . No tenderness. Abdominal: Soft. Bowel sounds normal. No distension. No mass. No tenderness. No rebound. No guarding. Musculoskeletal: RUE: Normal range of motion. No tenderness. No deformity LUE: Normal range of motion. No tenderness. No deformity RLE: Normal range of motion. 1+ edema. no tenderness. No deformity LLE: Normal range of motion. 1+ edema. No tenderness. No deformity Neurological: Alert and oriented to person, place, and time. Normal strength. CN II-VII intact. No sensory deficit. GCS eye subscore is 4. GCS verbal subscore is 5. GCS motor subscore is 6. Normal coordination Skin: Skin is warm and dry. No rash noted. No pallor. Normal capillary refill. Psychiatric: Normal mood. Normal affect. Const: Vital Signs, click to edit/add: Vital Signs - 24 hr 06/25/25 22:41 06/26/25 00:44 06/26/25 00:45 Temperature 97.6 F Pulse Rate 59 L 57 L Pulse Rate [Pulse Oximeter] 58 L Respiratory Rate 20 24 25 H Blood Pressure [Ri ght Upper Arm] 220/84 H Pulse Oximetry 96 95 95 Oxygen Delivery Me thod Room Air Course Vital Signs Vital signs: Initial Vital Signs Temperature 97.6 F 06/25/25 22:41 Temperature Source Temporal Artery Scan 06/25/25 22:41 Pulse Rate 58 L 06/25/25 22:41 Respiratory Rate 20 06/25/25 22:41 Blood Pressure 220/84 H 06/25/25 22:41 Blood Pressure Mean 129 H 06/25/25 22:41 Blood Pressure Position Sitting 06/25/25 22:41 Pulse Oximetry 96 06/25/25 22:41 Oxygen Delivery Method Room Air 06/25/25 22:41 Vital Signs Temperature 97.6 F 06/25/25 22:41 Pulse Rate 58 L 06/25/25 22:41 Respiratory Rate 20 06/25/25 22:41 Blood Pressure 220/84 H 06/25/25 22:41 Pulse Oximetry 96 06/25/25 22:41 Oxygen Delivery Method Room Air 06/25/25 22:41 Temperature 97.6 F 06/25/25 22:41 Pulse Rate 57 L 06/26/25 00:45 Respiratory Rate 25 H 06/26/25 00:45 Blood Pressure 220/84 H 06/25/25 22:41 Pulse Oximetry 95 06/26/25 00:45 Oxygen Delivery Method Room Air 06/25/25 22:41 Medications Administered Medications: Discontinued Medications Generic Name Dose Route Start Last Admin Trade Name Freq PRN Reason Stop Dose Admin Aspirin 324 mg 06/25/25 23:41 06/25/25 23:47 Aspirin 81 Mg Tab.Chew PO 06/25/25 23:42 324 mg ONCE ONE Administration Medical Decision Making MDM Narrative Medical decision making narrative: This patient presents to the ER today for evaluation of chest pain that began this afternoon around 4:00 p.m.. She is also noting a little bit of peripheral edema which is more persistent than normal for her, ongoing all week.. Differential was broad. No evidence of palpitations, syncope or other cardiac dysrhythmia. We considered possible ACS, however workup with EKG and troponin is negative. HEART score is 2. Given time since onset of symptoms, I have ordered 2 hour delta high sensitivity troponin. Discussed with a heart her Dr. Shaikh who will follow-up on the results of that repeat troponin. If it is normal I think she can safely discharged with close outpatient follow-up with primary care. I do not think the patient needs to be admitted for further sets of enzymes. EKG shows no evidence for pericarditis. Clinical presentation not suggestive of myocarditis. Chest x-ray shows no evidence for pneumonia, pneumothorax, pulmonary edema, pleural effusion, rib fracture, cardiomegaly. Mediastinum is normal on the x-ray. The patient has no ripping or tearing pain through to the back and has symmetric pulses on exam, she has no history of connective tissue disease , and her D-dimer level is normal. No other acute neuro findings or pain above low the diaphragm, so I doubt aortic dissection. Risk of radiation and contrast exposure would outweigh the benefit of CT angiogram. We considered PE for this patient. Overall low risk. Screening D-dimer is 0.3 which is reassuring. At this point the risk of radiation and contrast nephropathy would outweigh the benefit of CT PA. No wheezing or bronchospasm to suggest COPD/asthma. No signs of chest wall cellulitis, shingles, injury. She has also been noting little bit of peripheral edema for the past week or so. At this point workup is not show any evidence for at panic failure, liver failure, CHF. No hypoxia or difficulty breathing. I think would be reasonable for her to do a trial of the furosemide that have been prescribed to her by her PCP. Discussed this with the patient and her . With reasonable clinical confidence, I think the patient is safe for outpatient follow up. Discussed return precautions. Questions answered. Patient voices comfort with the plan. Lab Data Labs: Lab Results 06/25/25 06/25/25 06/25/25 Range/Units 23:34 23:41 23:42 WBC 7.43 (4.50-11.00) K/uL RBC 4.60 (4.00-5.20) m/uL Hgb 13.1 (12.0-16.0) gm/dL Hct 40.2 (33.0-51.0) % MCV 87 (80-100) fL MCH 29 (26-34) pg MCHC 33 (32-36) gm/dL RDW Coeff of Dominga 14.0 (11.5-15.5) % Plt Count 275 (140-440) K/uL Neut % (Auto) 64.1 (42.0-72.0) % Lymph % (Auto) 25.6 (20-44) % Posey % (Auto) 8.5 (0.0-11.0) % Eos % (Auto) 1.2 (0.0-7.0) % Baso % (Auto) 0.1 (0.0-3.0) % Neut # (Auto) 4.76 (1.7-7.0) K/uL Lymph # (Auto) 1.90 (0.90-2.90) K/uL Posey # (Auto) 0.60 (0.00-0.90) K/UL Eos # (Auto) 0.09 (0.00-0.50) K/uL Baso # (Auto) 0.01 (0.00-0.30) K/uL Abs Immat Gran (auto) 0.04 (0.00-0.30) K/uL Imm/Tot Granulo (auto) 0.5 % D-Dimer Quant (PE/DVT) 0.30 (0.00-0.50) ug/ml Sodium 135 (135-149) mmol/L Potassium 4.3 (3.6-5.1) mmol/L Chloride 104 (96-114) mmol/L Carbon Dioxide 29 (20-32) mmol/L Anion Gap 2 L (7-15) mEq/L BUN 12 (7-30) mg/dL Creatinine 0.9 (0.5-1.5) mg/dL Estimated Creat Clear 55.82 Estimated GFR 71 ml/min Glucose 187 H (60-115) mg/dL Calcium 8.7 (8.4-10.6) mg/dL Total Bilirubin 0.5 (0.1-1.5) mg/dL AST 29 (12-35) U/L ALT 33 (4-35) U/L Alkaline Phosphatase 77 (40-150) U/L POC Troponin I High Sensi < 2.9 L (2.9-13.0) pg/mL NT-Pro-B Natriuret Pep 98 (See Note) pg/mL Total Protein 6.9 (6.0-8.3) g/dL Albumin 4.0 (3.3-5.0) g/dL ECG Data Attestation: I personally reviewed and interpreted this ECG as follows: Interpretation: Sinus bradycardia Rate 59 PA interval 202 Normal QRS axis. No pathologic Q-waves. No acute ST segment elevation or depression. T-wave inversions in leads V1, V2, AVR. These are similar to 03/24/2022 QT 4 2, QTC 397 Discharge Plan Discharge Clinical Impression: Chest pain, Edema, peripheral Patient Disposition: Home, Self-Care Condition: Stable Instructions: Chest Pain (ED) Additional Instructions: As we discussed, please follow-up with your regular doctor for recheck within the next 3-5 days. If you have any worsening chest pain, trouble breathing, increasing swelling in your legs, fever, cough, or any concerns, please return to the emergency department immediately to be rechecked. In the morning, please try a dose of the furosemide that had been prescribed to you by her primary care provider. It may help reduce the swelling the your been noticing in your ankles. Continue on your other regular medication, including your baby aspirin. Prescriptions: No Action aspirin 81 mg tablet,delayed release (DR/EC) 81 mg PO DAILY cetirizine 10 mg tablet 10 mg PO BID multivitamin Tablet 1 tab PO QAM vitamin B complex Tablet 1 tab PO QDAY furosemide [Lasix] 20 mg tablet 20 mg PO QAM PRN (Reason: edema) Qty: 20 0RF azithromycin [Zithromax Z-Tadeo] 250 mg tablet See Rx Instructions PO .COMPLEX Qty: 6 0RF Rx Instructions: For 250 mg dose pack: take 500 mg today (day 1), then 250 mg for 4 days (days 2-5) PO epinephrine 0.3 mg/0.3 mL auto-injector 0.3 ml IM ONCE PRN (Reason: hypersensitivity reaction) Qty: 2 2RF simvastatin 20 mg tablet 20 mg PO QHS Qty: 90 3RF Januvia 100 mg tablet 100 mg PO DAILY Qty: 90 3RF propranolol 80 mg capsule,extended release 24 hr 80 mg PO DAILY Qty: 90 3RF pioglitazone 30 mg tablet 30 mg PO QDAY Qty: 90 1RF glipizide 10 mg tablet extended release 24hr 20 mg PO DAILY Qty: 180 1RF Follow Up/Referrals: Jean-Claude March MD [Primary Care Provider, Internal Medicine] Stand Alone Forms: [employer] Info Instructions
--- NOTE | 2025-06-25 23:41 | CRLHL7_ITS ---
For Patients: As a result of the Century Cures Act, medical imaging exams and procedure reports are released immediately into your electronic medical record. You may view this report before your referring provider. If you have questions, please contact your health care provider. Indication: Chest pain with peripheral edema. Technique: Two views of the chest. Comparison: Chest x-ray 07/23/2024. Findings/Impression: The heart is not abnormally enlarged. Mediastinal contours are grossly within normal limits. No definite confluent airspace opacity. Mild basilar atelectasis. No pleural effusion or pneumothorax. No acute osseous abnormality. Dictated by Vasquez Valentine MD @ 06/26/2025 12:12:24 AM (Electronically Signed)
[2025-06-25] MEDS: ASPIRIN 81 MG TAB.CHEW 324 MG PO (23:47)
[2025-06-25 23:48] LABS: Albumin* 4.0 g/dL (3.3-5.0); Chloride* 104 mmol/L (96-114)
[2025-06-25 23:49] LABS: Potassium* 4.3 mmol/L (3.6-5.1); Sodium* 135 mmol/L (135-149)
[2025-06-25 23:51] LABS: Alanine Aminotransferase* 33 U/L (4-35); Anion Gap 2 mEq/L (7-15); Aspartate Amino Transferase* 29 U/L (12-35); Blood Urea Nitrogen* 12 mg/dL (7-30); Carbon Dioxide* 29 mmol/L (20-32); Creatinine* 0.9 mg/dL (0.5-1.5); Est. Creatinine Clearance* 55.82; Estimated Glomerular Filt Rate 71 ml/min
[2025-06-25 23:52] LABS: Alkaline Phosphatase* 77 U/L (40-150); Bilirubin Total* 0.5 mg/dL (0.1-1.5); Calcium* 8.7 mg/dL (8.4-10.6); Glucose* 187 mg/dL (60-115); Hematocrit* 40.2 % (33.0-51.0); Hemoglobin* 13.1 gm/dL (12.0-16.0); Immature Granulocytes Abs Auto 0.04 K/uL (0.00-0.30); Immature Granulocytes Pct Auto 0.5 %; Lymphocytes Absolute Auto 1.90 K/uL (0.90-2.90); Mean Corpuscular HGB Conc 33 gm/dL (32-36); Mean Corpuscular Hemoglobin 29 pg (26-34); Mean Corpuscular Volume 87 fL (80-100); RDW Coefficient of Variation % 14.0 % (11.5-15.5); Red Blood Count* 4.60 m/uL (4.00-5.20); Slide Review Reflex No; Total Protein* 6.9 g/dL (6.0-8.3); White Blood Count* 7.43 K/uL (4.50-11.00)
[2025-06-26 00:05] LABS: NT Pro B Type NatriureticPept* 98 pg/mL (See Note)
[2025-06-26 00:10] LABS: D Dimer Quantitative* 0.30 ug/ml (0.00-0.50)
[2025-06-26 00:44] VITALS: PULSE 59; RESP 24; O2SAT 95
[2025-06-26 00:45] VITALS: PULSE 57; RESP 25; O2SAT 95
== END 2025-06-26 02:35 | disposition home or self-care (01) ==
PROVIDERS: Emergency Medicine; Emergency Provider Family Medicine; PCP Internal Medicine
DX: R07.9 Chest pain, unspecified (principal); R60.0 Localized edema
CPT/HCPCS: 36415; 71046; 80053; 83880; 84484; 85025; 85379; 93005; 99284; 99285; A9270